=== PATIENT | male | born 1980 | race Caucasian/White ===

== ENCOUNTER 2019-07-05 08:43 | Inpatient (IN) | payer MEDICARE, MEDICAID ==
[~2019-07-05] VITALS: Ht 175.3 cm; Wt 83.9 kg
[~2019-07-05 08:43] MED LIST: ACETAMINOPHEN-1 EAC1 PO; AMITRIPTYLINE H25 M2 PO; BENTYL20 MG PO; CLARITIN10 MG PO; CYMBALTA60 MG PO; DAYPRO600 MG PO; DEPAKOTE 250MG250 M1 PO; FELDENE20 MG PO; IBUPROFEN 800800 M1; IMITREX100 MG PO; KEFLEX500 MG PO; LYRICA 50 MG50 MG PO; METAXALL800 MG PO; PAXIL10 MG PO; PREDNISONE 20 M20 M1 PO; TOPAMAX50 MG PO; TRAMADOL 50 MG50 MG PO; VALIUM5 MG PO
[2019-07-05 08:48] VITALS: BP 137/57
[2019-07-05] MEDS ORDERED: AMLODIPINE-OLM1 EAC1 PO (08:52)
[2019-07-05] MEDS ORDERED: MOBIC15 MG PO (08:52)
[2019-07-05] MEDS ORDERED: BACLOFEN 10MG T10 MG PO (08:53)
[2019-07-05] MEDS ORDERED: LIPITOR40 MG PO (08:53)
[2019-07-05] MEDS ORDERED: PLAVIX 75 MG TA75 MG PO (08:53)
[2019-07-05] MEDS ORDERED: FLEXERIL PO (08:53)
[2019-07-05] MEDS ORDERED: COREG12.5 MG PO (08:53)
[2019-07-05] MEDS ORDERED: PERCOCET PO (08:54)
[2019-07-05] MEDS ORDERED: MS CONTIN 30 MG30 M1 PO (08:54)
[2019-07-05 09:15] LABS: ABSOLUTE BASOPHILS 0.1 thou/uL (0.0-0.2); ABSOLUTE EOSINOPHILS 0.3 thou/uL (0.0-0.7); ABSOLUTE LYMPHOCYTES 2.3 thou/uL (0.8-5.3); ABSOLUTE MONOCYTES 0.6 thou/uL (0.0-1.2); ABSOLUTE NEUTROPHILS 7.2 thou/uL (1.6-8.1); EOSINOPHILS 2.7 %; HEMATOCRIT 38.1 % (42.0-52.0); HEMOGLOBIN 13.4 gm/dL (14.0-18.0); MCH 26.8 pg (26.0-34.0); MCHC 35.2 g/dL (28.0-37.0); MCV 76.1 fL (80.0-100.0); MONOCYTES 5.8 %; MPV 6.7 fl. (7.2-11.1); NUCLEATED RBCS 0 /100WBC; PLATELET COUNT* 378 thou/uL (150-400); POLYS 68.5 %; RBC 5.01 mil/uL (4.50-6.00); RDW-CV 15.9 % (10.5-14.5); WBC 10.6 thou/uL (4.0-11.0)
[2019-07-05 10:05] LABS: ANION GAP 14 mmol/L (7-16); BUN 18 mg/dL (7-18); CALCIUM 9.8 mg/dL (8.5-10.1); CHLORIDE 100 mmol/L (98-107); CO2 25 mmol/L (21-32); CREATININE 0.8 mg/dL (0.6-1.3); GLUCOSE 167 mg/dL (70-99); SODIUM 139 mmol/L (136-145)
[2019-07-05 10:20] LABS: ALBUMIN 3.8 g/dL (3.4-5.0); ALKALINE PHOSPHATASE 115 U/L (46-116); LIPASE 69 U/L (73-393); MAGNESIUM 3.7 mg/dL (1.8-2.4); NT-PRO BRAIN NAT PEPTIDE < 5 pg/mL (<300); SGOT 20 U/L (15-37); SGPT 46 U/L (30-65); TOTAL BILIRUBIN 0.1 mg/dL (<0.1-1.0); TOTAL PROTEIN 8.2 g/dL (6.4-8.2); TROPONIN-I LEVEL <0.06 ng/mL (<0.06)
[2019-07-05 12:12] LABS: CHOLESTEROL 243 mg/dL (<200); HDL CHOLESTEROL 26 mg/dL (>40); PHOSPHORUS* 3.3 mg/dL (2.5-4.9); SERUM ASSESSMENT Clear; TC:HDL 9.3 Ratio (Not establshd); TRIGLYCERIDE 529 mg/dL (<150); VLDL 106 mg/dL (<40)
[2019-07-05 12:22] VITALS: BP 124/63
--- NOTE | 2019-07-05 14:11 | EKG ---
[place] [address] ELECTROCARDIOGRAM REPORT Name: MELISSA PATE Room: [address] ADM IN M.R.#: [id number] Admission: 07/05/19 Attend Phys: Jasbir Harmon Discharge: Date of : 78 Report #: [id number] THIS REPORT FOR: //name// [facility] ED Test Date: 2019-07-05 Test Time: 08:50:50 Pat Name: MELISSA PATE Department: Room: [facility] Gender: M Machinist Job Setter: VALERIE : 1980 Requested By: Jose Miguel Wilburn Order Number: [id number] MD: Bon Mckeon Measurements Intervals [place] Rate: 92 P: 32 VT: 147 QRS: -17 QRSD: 105 T: 7 QT: 378 QTc: 468 Interpretive Statements Sinus rhythm Possible left atrial enlargement Abnormal R-wave progression, late transition Left ventricular hypertrophy Inferior infarct, old Anterior ST elevation, probably due to LVH Baseline wander in lead(s) V2 Compared to ECG 05/15/2017 21:27:37 Myocardial infarct finding now present ST (T wave) deviation now present Incomplete right bundle-branch block no longer present Electronically Signed On 07-05-2019 14:11:41 SUMMER ASSOCIATE by Bon Mckeon [email or web address] <ELECTRONICALLY SIGNED> By: Bon Mckeon MD, [facility] 07/05/19 1411 0850 0850 Bon Mckeon MD, FAC /EPI
[2019-07-05 16:04] VITALS: BP 108/55
[2019-07-05 20:19] VITALS: BP 114/64
[2019-07-06] VITALS: BP 134/53
[2019-07-06 04:00] VITALS: BP 130/63
[2019-07-06 04:26] LABS: HEMATOCRIT 36.7 % (42.0-52.0); HEMOGLOBIN 12.3 gm/dL (14.0-18.0); MCH 25.9 pg (26.0-34.0); MCHC 33.4 g/dL (28.0-37.0); MCV 77.7 fL (80.0-100.0); MPV 7.2 fl. (7.2-11.1); RBC 4.73 mil/uL (4.50-6.00); RDW-CV 15.8 % (10.5-14.5); WBC 15.5 thou/uL (4.0-11.0)
[2019-07-06 04:44] LABS: CALCIUM 10.2 mg/dL (8.5-10.1); CREATININE 1.1 mg/dL (0.6-1.3); MAGNESIUM 1.9 mg/dL (1.8-2.4); POTASSIUM 3.6 mmol/L (3.5-5.1)
--- NOTE | 2019-07-06 05:52 | NUR ---
PT IS ABLE TO COMMUNICATE HIS NEEDS TO STAFF EFFECTIVELY. CURRENT PAIN MEDICAITON REGIMEN HAS BEEN MARGINALLY ADEQUATE FOR CONTROLLING HIS BACK PAIN UP TO THIS TIME. HE HAS BEEN NPO, EXCEPT FOR SIPS WITH MEDS, SINCE MIDNIGHT FOR A POSSIBLE CARDIAC STRESS TEST LATER TODAY. BACLOFEN RESTARTED EARLYER IN THIS SHIFT.
--- NOTE | 2019-07-06 07:20 | NUR ---
CHANGE OF SHIFT, BEDSIDE REPORT GIVEN PATIENT SEEN AT BEDSIDE, SITTING UP IN BED WATCHING TV ASSUMED PATIENT
[2019-07-06 08:00] VITALS: BP 130/75
--- NOTE | 2019-07-06 09:28 | CON ---
[address] [address] CONSULTATION Name: MELISSA PATE Room: [address] IN .R.#: [id number] Admission: 07/05/19 Attend Phys: Jasbir Harmon Discharge: Date of : 78 Report #: [id number] THIS REPORT FOR: //name// CC: Sebastian Elmore DO [facility] RAD TROTTER MD INDICATION: Chest pain. HISTORY OF PRESENT ILLNESS: The patient is a 38-year-old gentleman with a history of coronary artery disease. He had percutaneous coronary intervention in the setting of non-ST elevation myocardial infarction in July of last year with placement of stents to the circ marginal, LAD and diagonal vessels. Several weeks later, he had an additional stent placed to the right posterolateral branch. Outside records are not available for review. The patient presented this morning with complaints of chest discomfort described as a sharp and pressure-like pain with intermittent episodes of very sharp fleeting discomfort radiating from the left sternal region to the left axilla. He reports a cough with this, occasional episodes of cold sweats. EKG showed sinus rhythm with evidence of left ventricular hypertrophy and possible old inferior myocardial infarction. No acute ST segment abnormalities were noted. Cardiac enzymes are unremarkable. He is without other cardiac complaint at this time. PAST MEDICAL HISTORY: 1. Coronary artery disease. 2. Hyperlipidemia. 3. Hypertension. 4. Recurrent migraines. PAST SURGICAL HISTORY: 1. Tonsillectomy and adenoidectomy as a child. 2. Appendectomy. 3. Previous thoracic back surgery. 4. Thoracotomy for left lung collapse. 5. Orchiectomy as a child, single. ALLERGIES: ALPRAZOLAM, CEFTAZIDIME, IODINE, COMPAZINE, TIZANIDINE. HOME MEDICATIONS: Paxil 100 mg b.i.d., meloxicam 15 mg daily, amlodipine/olmesartan/hydrochlorothiazide 10/20/12.5 one tablet daily, Flexeril 10 mg t.i.d., carvedilol 12.5 mg b.i.d., clopidogrel 75 mg daily, atorvastatin 40 mg daily, baclofen 20 mg t.i.d., MS Contin 30 mg 1/2 tablet b.i.d., Percocet 5/325 one tablet q. 4 hours p.r.n. SOCIAL HISTORY: The patient is a former cigarette smoker. He quit smoking. [place] [address] CONSULTATION Name: MELISSA PATE Room: [address]#: [id number] Admission: 07/05/19 Attend Phys: Jasbir Harmon Discharge: Date of : 78 Report #: [id number] PHYSICAL EXAMINATION: VITAL SIGNS: Stable. Blood pressure 124/63, heart rate 86 and regular. GENERAL: This is a pleasant gentleman who is in no distress. Mood and affect appropriate. HEENT: Extraocular muscles intact. Mucous membranes are moist. NECK: Shows no jugular venous distention. There are no carotid bruits. CHEST: Reveals clear lung orozco. I do not appreciate wheezes or rales. CARDIOVASCULAR: Reveals a regular rhythm with normal S1 and S2. I do not appreciate gallop or murmur. ABDOMEN: Reveals a protuberant abdomen, soft and nontender. Bowel sounds present. EXTREMITIES: Shows no edema. Peripheral pulses are 2+ and easily palpable. DIAGNOSTIC DATA: Chest x-ray is reviewed and shows evidence of previous fusion, mild cardiomegaly, but no acute infiltrate or effusion noted. LABORATORY DATA: Labs are reviewed. Electrolytes within normal limits. BUN 18, creatinine 0.8, serum glucose 167. Troponins are less than 0.06 on 2 separate occasions. NT-proBNP is less than 5. Fasting lipid profile shows total cholesterol 243, triglycerides 529, HDL 26, LDL unable to be calculated. White blood cell count 10.6, hemoglobin 13.4, platelet count 378,000. IMPRESSION AND RECOMMENDATIONS: 1. Chest pain, somewhat atypical for angina. He has ruled out for myocardial infarction thus far. We will proceed with noninvasive stress testing to further evaluate. 2. Coronary artery disease. The patient is on appropriate medications as outlined above. 3. Hyperlipidemia, triglycerides not well controlled. We will check hemoglobin A1c to see if the patient is diabetic. Would recommend adding a fibrate for triglyceride elevation. Further treatment will be pending response to those medications. 4. Hypertension, adequately controlled on current regimen. <ELECTRONICALLY SIGNED> By: Bon Mckeon MD, FACC 07/06/19 0928 1307 2300Bon Mckeon MD, FACC /nt
[2019-07-06 11:20] VITALS: BP 157/87
[2019-07-06] MEDS ORDERED: FENOFIBRATE160 MG PO (12:18)
[2019-07-06] MEDS ORDERED: MUCINEX600 MG PO (12:18)
[2019-07-06 13:11] VITALS: BP 157/87
--- NOTE | 2019-07-06 13:40 | NUR ---
PATIENT DISCHARGED TO HOME ALL DISCHARGE INSTUCTIONS GIVEN, ACKNOWLEDGED, SIGNED COPIES GIVEN IV AND HEART MONITOR REMOVED PERSOANL BELONGINGS RETURNED PATIENT DISCHARGED TO HOME
--- NOTE | 2019-07-06 16:59 | CARDNUC ---
[place] [address] CARDIAC NUCLEAR IMAGING REPORT Name: MELISSA PATE Room: [address]#: [id number] Admission: 07/05/19 Attend Phys: Jasbir navas Sa Discharge: 07/06/19 Date of : 78 Date of Service: 07/06/19 1659 Report #: [id number] THIS REPORT FOR: //name// APPROVED REPORT Study performed: 07/06/2019 09:47:49 Indication: Chest pain Patient Location: In-Patient Room #: [facility] Stress Tech: Rocio Plok Stress Nurse: Camille Del Rio RN Ht: 5 ft 9 in Wt: 185 lbs BSA: 2.00 m2 BMI: 27.31 Medical History Medical History: COPD, HTN, Hyperlipidemia, CAD s/p MA, Smoking Medications: amlodipine, losartan, carvedilol, asa-325, atorvastatin, clopidogrel Allergies: iodine, alprazolam, cmpazine, tizanidine, ceftiazide, shellfish Cardiac Risk Factors: Hyperlipidemia, HTN, Smoking, FHX of CAD Previous Cardiac Procedures: PCI Exercise History: Sedentary Physical Disabilities: Back Meds Held (24 hrs): carvedilol Resting Data Rest SPECT myocardial perfusion imaging was performed in supine position 45 minutes following the intravenous injection of 10.6 mCi of Tc-99m Sestamibi. Time of rest injection: 08:00 The images were gated to evaluate regional wall motion and calculate left ventricular ejection fraction. Administration Route: IV Administration Site: Left AC Pharmacologic Stress Pharmacologic stress test was performed by injecting Regadenoson 0.4 mg IV push over 10-15 seconds immediately followed by the intravenous injection of 35.6 mCi of Tc-99m Sestamibi. Time of stress injection: 09:45 [place] [address] CARDIAC NUCLEAR IMAGING REPORT Name: MELISSA PATE Room: [address]#: [id number] Admission: 07/05/19 Attend Phys: Jasbir navas Sa Discharge: 07/06/19 Date of : 78 Date of Service: 07/06/19 1659 Report #: [id number] Administration Route: IV Administration Site: Left AC Heart Rate at time of stress injection: 128 bpm. Gated Stress SPECT was performed 45 minutes after stress injection. The images were gated to evaluate regional wall motion and calculate left ventricular ejection fraction. Prone imaging was performed. Stress Test Details Stress Test: Pharmacologic stress testing performed using 0.4 mg of regadenoson per 5 mL given IV over 10 seconds. Reason for pharmacologic stress test: physical limitation. 60 mg caffeine given for tachycardia. HR Max Heart Rate (APMHR): 181 bpm Resting HR: 104 bpm Target HR (85% APMHR): 153 bpm Max HR Achieved: 128 bpm % of APMHR: 70 Recovery HR: 115 bpm BP Resting BP: 141/94 mmHg Max BP: 161/82 mmHg Recovery BP: 161/82 mmHg ECG Resting ECG: Sinus Rhythm Stress ECG: Sinus Tachycardia ST Change: None Arrhythmia: None Recovery ECG: Sinus Rhythm Recovery ST Change: None Recovery Arrhythmia: None Clinical Reason for Termination: Completed protocol Exercise duration: 0 min sec Exercise capacity: 1 METs The patient had no significant cardiac symptoms with Lexiscan infusion. Nurse Comments pt spo2 92%onra. o2 4l/nc applied. pt has rods in back and is unable towalk on treadmill Stress ECG Conclusion The baseline 12-lead EKG shows sinus rhythm without [place] [address] CARDIAC NUCLEAR IMAGING REPORT Name: MELISSA PATE Room: [address]#: [id number] Admission: 07/05/19 Attend Phys: Jasbir navas Sa Discharge: 07/06/19 Date of : 78 Date of Service: 07/06/19 1659 Report #: [id number] T wave abnormality. EKGs obtained during and post Lexiscan stress show sinus rhythm and sinus tachycardia with no significant ST or T wave changes when compared to baseline. There were no significant stress-induced arrhythmias. Study Quality Study: Good Artifact: No artifact Study Data At rest, the left ventricular ejection fraction was 74%.. Post stress, the left ventricular ejection was 71%.. TID = 1.12. Perfusion Perfusion images obtained at rest and post Lexiscan stress show a small in size moderate intensity defect of the basal inferior wall that appears fixed. No significant reversible defects were identified. Wall Motion There is mild hypokinesis of the basal portion of the inferoseptal wall. Remaining chowdary appear to move normally. Global LV systolic function is preserved. Nuclear Conclusion ECG Findings: negative for ischemia Clinical Findings: negative for ischemia Nuclear Findings: negative for ischemia Exercise Capacity: not assessed Left Ventricular Function: preserved Myocardial perfusion images suggest prior infarct of the basal inferior wall. There were no defects to suggest ischemia. Global LV systolic function is fairly well-preserved. This is not a high risk study. <Conclusion> The baseline 12-lead EKG shows sinus rhythm without significant ST or T wave abnormality. EKGs obtained during and post Lexiscan stress show sinus rhythm and sinus tachycardia with no significant ST or T wave changes when compared to baseline. There were no significant stress-induced arrhythmias. <ELECTRONICALLY SIGNED> By: Bon Mckeon MD, FACC 07/06/19 165 58 58 Bon Mckeon MD, FACC /INF
== END 2019-07-06 13:40 | disposition home or self-care (01) | DRG 303 ==
LOC: M.ERS 08:43 → M.2W 10:47 → M.TBA-ER 10:47 → M.2W 12:31
PROVIDERS: Emergency Medicine Emergency Medical Services; ADMIT Family Medicine
DX: I25.119 Atherosclerotic heart disease of native coronary artery with unspecified angina pectoris (principal); K59.00 Constipation, unspecified; G43.909 Migraine, unspecified, not intractable, without status migrainosus; E78.5 Hyperlipidemia, unspecified; F41.9 Anxiety disorder, unspecified; F32.9 Major depressive disorder, single episode, unspecified; J44.9 Chronic obstructive pulmonary disease, unspecified; G40.909 Epilepsy, unspecified, not intractable, without status epilepticus; M43.24 Fusion of spine, thoracic region; Z90.49 Acquired absence of other specified parts of digestive tract; Z95.5 Presence of coronary angioplasty implant and graft; Z88.8 Allergy status to other drugs, medicaments and biological substances; Z91.041 Radiographic dye allergy status; Z91.013 Allergy to seafood; Z87.891 Personal history of nicotine dependence; Z91.14 Patient's other noncompliance with medication regimen

== ENCOUNTER 2019-09-27 11:49 | Emergency (ER) | payer OTHER, MEDICAID ==
[~2019-09-27] VITALS: Ht 175.3 cm; Wt 89.4 kg
[~2019-09-27 11:49] MED LIST changes: +AMLODIPINE-OLM1 EAC1 PO; +BACLOFEN 10MG T10 MG PO; +COREG12.5 MG PO; +FENOFIBRATE160 MG PO; +FLEXERIL PO; +LIPITOR40 MG PO; +MOBIC15 MG PO; +MS CONTIN 30 MG30 M1 PO; +MUCINEX600 MG PO; +PERCOCET PO; +PLAVIX 75 MG TA75 MG PO
[2019-09-27] MEDS ORDERED: DOXYCYCLINE 10100 M2 PO (12:21)
[2019-09-27] MEDS ORDERED: NORCO 5-325 TA1 EAC1 PO (12:21)
[2019-09-27 12:25] VITALS: BP 140/100
== END 2019-09-27 12:29 | disposition home or self-care (01) ==
LOC: M.ERS 11:49
DX: S80.861A Insect bite (nonvenomous), right lower leg, initial encounter (principal); I10 Essential (primary) hypertension; I25.10 Atherosclerotic heart disease of native coronary artery without angina pectoris; E78.5 Hyperlipidemia, unspecified; G43.909 Migraine, unspecified, not intractable, without status migrainosus; Z90.49 Acquired absence of other specified parts of digestive tract; Z95.5 Presence of coronary angioplasty implant and graft; Z87.891 Personal history of nicotine dependence; Z91.013 Allergy to seafood; Z88.8 Allergy status to other drugs, medicaments and biological substances; W57.XXXA Bitten or stung by nonvenomous insect and other nonvenomous arthropods, initial encounter; Y93.89 Activity, other specified; Y92.89 Other specified places as the place of occurrence of the external cause; Y99.8 Other external cause status

== ENCOUNTER 2020-03-04 13:20 | Emergency (ER) | payer OTHER, MEDICAID ==
[~2020-03-04] VITALS: Ht 205.7 cm; Wt 78.8 kg
[~2020-03-04 13:20] MED LIST changes: +DOXYCYCLINE 10100 M2 PO; +NORCO 5-325 TA1 EAC1 PO
[2020-03-04 14:30] VITALS: BP 155/98
== END 2020-03-04 14:30 | disposition home or self-care (01) ==
LOC: M.ERS 13:20
DX: M25.551 Pain in right hip (principal); G43.909 Migraine, unspecified, not intractable, without status migrainosus; I25.10 Atherosclerotic heart disease of native coronary artery without angina pectoris; G89.29 Other chronic pain; E78.5 Hyperlipidemia, unspecified; I10 Essential (primary) hypertension; Z87.891 Personal history of nicotine dependence; Z91.041 Radiographic dye allergy status; Z88.8 Allergy status to other drugs, medicaments and biological substances; Z91.013 Allergy to seafood; Z88.1 Allergy status to other antibiotic agents; Z90.49 Acquired absence of other specified parts of digestive tract; Z95.5 Presence of coronary angioplasty implant and graft

== ENCOUNTER 2020-03-07 15:10 | Inpatient (IN) | payer OTHER, MEDICAID ==
[~2020-03-07] VITALS: Ht 175.3 cm; Wt 84.4 kg
[2020-03-07] VITALS (29 sets, daily range): BP systolic 104–188; BP diastolic 7–107
[2020-03-07 15:30] LABS: HEMOGLOBIN 15.1 gm/dL (14.0-18.0); MCH 26.4 pg (26.0-34.0); MCHC 34.2 g/dL (28.0-37.0); MCV 77.2 fL (80.0-100.0); MPV 7.4 fl. (7.2-11.1); NUCLEATED RBCS 0 /100WBC; PLATELET COUNT* 393 thou/uL (150-400); RBC 5.69 mil/uL (4.50-6.00); RDW-CV 15.7 % (10.5-14.5)
[2020-03-07 15:36] LABS: CALCIUM 9.4 mg/dL (8.5-10.1); CREATININE 0.7 mg/dL (0.6-1.3); POTASSIUM 3.5 mmol/L (3.5-5.1)
[2020-03-07 15:45] LABS: TOTAL BILIRUBIN 0.3 mg/dL (<0.1-1.0); TOTAL PROTEIN 8.3 g/dL (6.4-8.2)
--- NOTE | 2020-03-07 15:45 | NUR ---
50MG BENADRAYL, 125MG SOLUMEDROL, 1000ML NS, PULLED FOR NURSE FRASER, WITH SITE SAFETY COORDINATOR, UNDER THE VERBAL ORDERS OF DR DIAZ. COVID TEST SWABS ARE SENT WITH PATIENT BUT NOT PERFORMED
[2020-03-07 16:02] LABS: ABSOLUTE EOSINOPHILS 1.3 thou/uL (0.0-0.7); ABSOLUTE LYMPHOCYTES 2.4 thou/uL (0.8-5.3); ABSOLUTE MONOCYTES 0.4 thou/uL (0.0-1.2); ABSOLUTE NEUTROPHILS 7.9 thou/uL (1.6-8.1); ANISOCYTOSIS Occasional; PLATELET ESTIMATE ADEQUATE
--- NOTE | 2020-03-07 17:51 | NUR ---
PT ARRIVED TO ROOM ICU 4. RIGHT GROIN CATH SITE AND RADIAL SITE CHECKED WITH SALES TECHNICIAN HOME THEATER RN. PT INSTRUCTED ON BEDREST AND NOT MOVE RIGHT LEG. NSR. VSS. AT BS AND UPDATED ON CARE
--- NOTE | 2020-03-07 21:12 | NUR ---
PATIENT COMPLAINING OF NEW ONSET, SHARP PAIN IN RLQ OF ABDOMEN AND INTO GROIN. PAGED DR. CASTELLON AND OBTAINED ORDERS FOR STAT CT OF ABDOMEN AND PELVIS. CT RESULTS RETURNED. PAGED DR. CASTELLON FOR RESULTS. AWAITING CALLBACK. [facility]
[2020-03-07 21:39] LABS: HEMATOCRIT 37.5 % (42.0-52.0); MCH 25.8 pg (26.0-34.0); MCHC 33.3 g/dL (28.0-37.0); MCV 77.4 fL (80.0-100.0); MPV 7.3 fl. (7.2-11.1); RBC 4.84 mil/uL (4.50-6.00); RDW-CV 15.4 % (10.5-14.5); WBC 15.2 thou/uL (4.0-11.0)
[2020-03-07 21:41] LABS: HEMOGLOBIN 12.5 gm/dL (14.0-18.0)
[2020-03-07 22:18] LABS: APTT 26.2 Seconds (25.0-31.3); PROTIME 10.7 Seconds (9.20-11.50)
[2020-03-08] VITALS (44 sets, daily range): BP systolic 116–199; BP diastolic 55–101
[2020-03-08 01:44] LABS: HEMATOCRIT 36.3 % (42.0-52.0); HEMOGLOBIN 12.2 gm/dL (14.0-18.0); MCH 25.8 pg (26.0-34.0); MCHC 33.7 g/dL (28.0-37.0); MCV 76.7 fL (80.0-100.0); MPV 7.4 fl. (7.2-11.1); RBC 4.73 mil/uL (4.50-6.00); RDW-CV 15.3 % (10.5-14.5); WBC 18.9 thou/uL (4.0-11.0)
[2020-03-08 02:10] LABS: ANION GAP 13 mmol/L (7-16); BUN 14 mg/dL (7-18); CALCIUM 8.6 mg/dL (8.5-10.1); CHLORIDE 103 mmol/L (98-107); CO2 23 mmol/L (21-32); CREATININE 0.8 mg/dL (0.6-1.3); GLUCOSE 188 mg/dL (70-99); POTASSIUM 3.6 mmol/L (3.5-5.1); SODIUM 139 mmol/L (136-145); TROPONIN-I LEVEL 0.06 ng/mL (<0.06)
[2020-03-08 02:21] LABS: CHOLESTEROL 216 mg/dL (<200); HDL CHOLESTEROL 36 mg/dL (>40); LDL CHOLESTEROL 160 mg/dL (<100); TRIGLYCERIDE 101 mg/dL (<150); VLDL 20 mg/dL (<40)
[2020-03-08 02:23] LABS: SERUM ASSESSMENT Clear
[2020-03-08 05:20] LABS: HEMATOCRIT 35.3 % (42.0-52.0); HEMOGLOBIN 11.9 gm/dL (14.0-18.0); MCH 25.6 pg (26.0-34.0); MCHC 33.7 g/dL (28.0-37.0); MPV 7.1 fl. (7.2-11.1); RBC 4.64 mil/uL (4.50-6.00); RDW-CV 15.6 % (10.5-14.5); WBC 20.6 thou/uL (4.0-11.0)
--- NOTE | 2020-03-08 07:29 | NUR ---
ASSESSMENTS CHARTED. PATIENT'S PAIN BETTER CONTROLLED THROUGHOUT THE NIGHT. ORDERED TO STAY ON BEDREST PER DR. CASTELLON UNTIL THE AM. SPOKE WITH VASCULAR SURGERY, NO SURGICAL OPTION TO BE PURSUED AT THIS TIME. VSS. NO OTHER SIGNIFICANT EVENTS THIS SHIFT NOT PREVIOUSLY NOTED.
--- NOTE | 2020-03-08 09:21 | EKG ---
[place] [address] ELECTROCARDIOGRAM REPORT Name: MELISSA PATE Room: [address] ADM IN .R.#: [id number] Admission: 03/07/20 Attend Phys: Tio Gallegos MD Discharge: Date of : 78 Date of Service: 03/07/20 1516 Report #: [id number] THIS REPORT FOR: //name// [facility] ED Test Date: 2020-03-07 Test Time: 15:16:30 Pat Name: MELISSA PATE Department: Room: [facility] Gender: M Collection Team Lead: KYLER : 1980 Requested By: Telma Slater Order Number: [id number] MD: Lang Kim Measurements Intervals [place] Rate: 100 P: 17 [place]: 152 QRS: -51 QRSD: 106 T: 42 QT: 376 QTc: 485 Interpretive Statements Sinus tachycardia Left atrial enlargement Abnormal R-wave progression, late transition Left ventricular hypertrophy Inferior infarct, old ST elevation, consider anterior injury Compared to ECG 07/05/2019 08:50:50 Sinus rhythm no longer present Myocardial infarct finding still present ST (T wave) deviation still present Electronically Signed On 03-08-2020 9:21:13 CDT by Lang Kim [email or web address] <ELECTRONICALLY SIGNED> By: Aryan Kim MD, [facility] 03/08/20 0921 1516 1516 Aryan Kim MD, [facility] /EPI
[2020-03-08 11:37] LABS: HEMATOCRIT 36.2 % (42.0-52.0); HEMOGLOBIN 12.1 gm/dL (14.0-18.0); MCH 25.8 pg (26.0-34.0); MCHC 33.4 g/dL (28.0-37.0); MCV 77.4 fL (80.0-100.0); MPV 7.6 fl. (7.2-11.1); RBC 4.68 mil/uL (4.50-6.00); RDW-CV 15.5 % (10.5-14.5); WBC 26.3 thou/uL (4.0-11.0)
[2020-03-08 14:07] LABS: ABSOLUTE BASOPHILS 0.1 thou/uL (0.0-0.2); ABSOLUTE LYMPHOCYTES 1.8 thou/uL (0.8-5.3); ABSOLUTE MONOCYTES 1.1 thou/uL (0.0-1.2); ABSOLUTE NEUTROPHILS 22.4 thou/uL (1.6-8.1); BASOPHILS 0.4 %; HEMATOCRIT 35.9 % (42.0-52.0); HEMOGLOBIN 12.1 gm/dL (14.0-18.0); LYMPHOCYTES 7.1 %; MCH 25.9 pg (26.0-34.0); MCHC 33.7 g/dL (28.0-37.0); MCV 76.8 fL (80.0-100.0); MONOCYTES 4.5 %; MPV 7.4 fl. (7.2-11.1); NUCLEATED RBCS 0 /100WBC; PLATELET COUNT* 344 thou/uL (150-400); RBC 4.67 mil/uL (4.50-6.00); RDW-CV 15.4 % (10.5-14.5); WBC 25.5 thou/uL (4.0-11.0)
[2020-03-08 18:06] LABS: ABSOLUTE LYMPHOCYTES 2.2 thou/uL (0.8-5.3); ABSOLUTE MONOCYTES 0.7 thou/uL (0.0-1.2); ABSOLUTE NEUTROPHILS 18.4 thou/uL (1.6-8.1); BASOPHILS 0.1 %; HEMATOCRIT 34.2 % (42.0-52.0); HEMOGLOBIN 11.6 gm/dL (14.0-18.0); LYMPHOCYTES 10.2 %; MCH 26.3 pg (26.0-34.0); MCHC 34.1 g/dL (28.0-37.0); MCV 77.1 fL (80.0-100.0); MONOCYTES 3.4 %; MPV 7.7 fl. (7.2-11.1); NUCLEATED RBCS 0 /100WBC; PLATELET COUNT* 336 thou/uL (150-400); POLYS 86.3 %; RBC 4.43 mil/uL (4.50-6.00); RDW-CV 15.8 % (10.5-14.5); WBC 21.3 thou/uL (4.0-11.0)
--- NOTE | 2020-03-08 18:19 | NUR ---
PT WENT FOR CT/ MRI OF THE HEAD DO TO C/O DIZZINESS LOSS OF HEARING IN LEFT EAR RESULTS SHOWED ANTERIOR INFERIOR ISCHEMIC FARCT 3-4 WEEKS AGO [facility] 5 PT HAD TWO VOMITING EPISODES NOT RELIEVED BY ZOFRAN SCOPOLAMINE PATCH ORDER PT STATED IT HELPED. PT C/O SEVERE PAIN ALL DAY MOROPHINE AND HYDROCODONE GIVEN CBC COMPLETED EVERY [address] CASTELLON TO MONITOR HGB AND WBC. F/U CT OF ABD/PELVIS COMPLETED NO CHANGE FROM PRIOR CT RESULTS EXPLAINED TO FAMILY HEMATOMA RL ABD IS BEING MONITORED. PT AND HAVE MANY QUESTIONS RESTING IN BED
[2020-03-08 18:41] LABS: AMP/METHAMP Negative (Negative); BARBITURATES POSITIVE (Negative); BENZODIAZEPINES Negative (Negative); COCAINE Negative (Negative); METHADONE Negative (Negative); OPIATES POSITIVE (Negative); PCP Negative (Negative); THC Negative (Negative)
[2020-03-08 22:12] LABS: HEMATOCRIT 32.8 % (42.0-52.0); HEMOGLOBIN 11.2 gm/dL (14.0-18.0); MCH 26.2 pg (26.0-34.0); MCV 77.1 fL (80.0-100.0); MPV 7.4 fl. (7.2-11.1); RBC 4.26 mil/uL (4.50-6.00); RDW-CV 15.6 % (10.5-14.5); WBC 17.8 thou/uL (4.0-11.0)
[2020-03-09 03:34] LABS: HEMATOCRIT 33.8 % (42.0-52.0); HEMOGLOBIN 11.4 gm/dL (14.0-18.0); MCH 25.9 pg (26.0-34.0); MCHC 33.7 g/dL (28.0-37.0); MCV 76.8 fL (80.0-100.0); MPV 7.4 fl. (7.2-11.1); RBC 4.4 mil/uL (4.50-6.00); RDW-CV 16.1 % (10.5-14.5); WBC 16.6 thou/uL (4.0-11.0)
[2020-03-09 03:57] LABS: CALCIUM 9.1 mg/dL (8.5-10.1); CREATININE 0.7 mg/dL (0.6-1.3); MAGNESIUM 2.1 mg/dL (1.8-2.4); POTASSIUM 3.8 mmol/L (3.5-5.1)
[2020-03-09 07:00] VITALS: BP 143/81
[2020-03-09 08:01] VITALS: BP 136/83
--- NOTE | 2020-03-09 08:20 | NUR ---
ASSESSMENTS CHARTED. PATIENT HAD UNEVENTFUL NIGHT. PAIN CONTROLLED WITH MORPHINE DOSES. SWALLOWS ORAL MEDS WITHOUT DIFFICULTY. NO FURTHER COMPLAINTS RELATING TO ABDOMEN AND HEMATOMA FORMATION FROM PREVIOUS NIGHT. VSS
--- NOTE | 2020-03-09 09:40 | NUR ---
ROSAMARIA DUMONT'Jia, PT TOLERATED WELL. PT DID VOID 25 MLS AFTER, IT WAS BLOOD TINGED, NO CLOTS. PT UP TO SINK TO SHAVE INDEPENDENTLY. DIET ORDERED, PT WANTS TO TAKE PILLS AFTER FINISHING BREAKFAST. PT IS NOW TELE STATUS, AWAITING BED. WANTS TO SHOWER, ATTEMPTED TO CALL UP TO TELE AND SEE IF THERE WAS SOMEONE WHO COULD TAKE PT UP TO SHOWER ROOM.
[2020-03-09 11:40] LABS: HEMATOCRIT 32.8 % (42.0-52.0); HEMOGLOBIN 11.3 gm/dL (14.0-18.0); MCH 26.4 pg (26.0-34.0); MCHC 34.3 g/dL (28.0-37.0); MCV 76.9 fL (80.0-100.0); MPV 7.4 fl. (7.2-11.1); RBC 4.26 mil/uL (4.50-6.00); WBC 16.4 thou/uL (4.0-11.0)
[2020-03-09 12:08] VITALS: BP 123/72
--- NOTE | 2020-03-09 13:28 | NUR ---
PT HAS BEEN ON TWO WALKS THIS SHIFT. FIRST WALK PT STATED HE WAS HAVING SOME STIFFNESS AND ACHING. PRN HYDROCODONE WAS GIVEN AFTER, THEN AFTER SECOND WALK PT STATED HE WAS FEELING MUCH BETTER
--- NOTE | 2020-03-09 16:55 | NUR ---
PT TO GO TO ROOM 211, REPORT GIVEN TO ATIF QUEZADA
[2020-03-09 17:28] VITALS: BP 135/84
--- NOTE | 2020-03-09 18:41 | NUR ---
PATIENT TRANSFERRED FROM ICU. PATIENT ARRIVED ON UNIT AT 1711. ASSESSMENT AND CHARTING REVIEWED. THIS RN AGREES WITH RON RN'S ASSESSMENT AND CHARTING. HOURLY ROUNDING PERFORMED. PATIENT HOOKED TO MONITOR. PATIENT RIGHT GROIN SITE INTACT, NO BLEEDING. RIGHT RADIAL FAILED SITE, NO BLEEDING. CALL LIGHT WITH IN REACH.
[2020-03-09 20:00] VITALS: BP 131/87
--- NOTE | 2020-03-09 20:00 | NUR ---
RECEIVED REPORT AND ASSUMED CARE OF PT, ASSESSMENT COMPLETED. PT ANXIOUS AND WANTING TO WALK INTO HALLWAY, WHEN TOLD HE HAD TO WEAR A MASK HE BECAME UPSET, REMAINS IN ROOM. RT GROIN DRSG DRY AND INTACT. TELEMETRY ON SHOWING SR. WILL CONT TO MONITOR AND ASSIST NEEDED.
[2020-03-09 23:52] VITALS: BP 116/62
[2020-03-10] VITALS (7 sets, daily range): BP systolic 116–140; BP diastolic 62–76
[2020-03-10 02:06] LABS: GLYCOHEMOGLOBIN (HGB A1C) 5.9 % (4.8-5.6)
[2020-03-10 04:52] LABS: HEMATOCRIT 31.9 % (42.0-52.0); MCH 26.5 pg (26.0-34.0); MCHC 34.5 g/dL (28.0-37.0); MCV 76.7 fL (80.0-100.0); MPV 7.4 fl. (7.2-11.1); RBC 4.16 mil/uL (4.50-6.00); RDW-CV 15.7 % (10.5-14.5); WBC 11.3 thou/uL (4.0-11.0)
--- NOTE | 2020-03-10 06:12 | NUR ---
SLEPT WELL TONIGHT. DENIES CP OR SOB. NO CHANGE IN ASSESSMENT. TELEMETRY CONT TO SHOW SR. HS GOALS OF REST AND SAFETY ACHIEVED. HOURLY ROUNDING OBSERVED.
[2020-03-10] MEDS ORDERED: ASPIR 8181 M1 PO (10:59)
[2020-03-10] MEDS ORDERED: LIPITOR40 MG PO (11:00)
[2020-03-10] MEDS ORDERED: LOPRESSOR50 MG PO (11:01)
[2020-03-10] MEDS ORDERED: PROTONIX 20 MG20 M1 PO (11:03)
[2020-03-10] MEDS ORDERED: EFFIENT10 MG PO (11:04)
--- NOTE | 2020-03-10 11:13 | EKG ---
[place] [address] ELECTROCARDIOGRAM REPORT Name: HERLINDAMELISSA Moreno Room: [address] IN .R.#: [id number] Admission: 03/07/20 Attend Phys: Paul Trejo, Discharge: Date of : 78 Date of Service: 03/08/20 1552 Report #: [id number] THIS REPORT FOR: //name// [facility] Test Date: 2020-03-08 Test Time: 15:52:00 Pat Name: MELISSA PATE Department: Room: [facility] Gender: M Dough Scaler And Mixer: Murali Iglesias : 1980 Requested By: Aryan Kim Order Number: [id number] MD: Tio Gallegos Measurements Intervals [place] Rate: 72 P: -14 [place]: 149 QRS: -19 QRSD: 114 T: 114 QT: 431 QTc: 472 Interpretive Statements Sinus rhythm Probable left atrial enlargement Left ventricular hypertrophy Inferior infarct, old Anterior infarct, (LAD) Compared to ECG 03/07/2020 15:16:30 Sinus tachycardia no longer present Myocardial infarct finding still present Electronically Signed On 03-10-2020 11:13:27 CDT by Tio Gallegos [email or web address] <ELECTRONICALLY SIGNED> By: Tio Gallegos MD, FACC 03/10/20 1113 1552 1552 Tio Gallegos MD, [facility] /EPI
--- NOTE | 2020-03-10 11:39 | NUR ---
Per nurse, Pt is having a zoom call with the courts in regards to his kids, CM to f/u later
--- NOTE | 2020-03-10 12:00 | NUR ---
Cardiac Rehab Stroke Education. Educated receptive patient and spouse on signs and symptoms of stroke, when to call 911, personal risk factor reduction, and smoking cessation. States understanding and questions answered to patient and spouse's satisfaction.
[2020-03-10] MEDS ORDERED: COREG25 MG PO ×2 (12:19→13:25)
[2020-03-10] MEDS ORDERED: NITROSTAT0.4 M1 SUBLING (12:24)
--- NOTE | 2020-03-10 12:32 | 2DMMODE ---
[place] [address] 2 D/M-MODE ECHOCARDIOGRAM Name: MELISSA PATE Josh Room: [address] IN [facility]#: [id number] Admission: 03/07/20 Attend Phys: Paul Trejo, Discharge: Date of : 78 Date of Service: 03/10/20 1231 Report #: [id number] THIS REPORT FOR: cc: Missael Velásquez,Missael Pandya,Bon Pickens MD [facility] ~ APPROVED REPORT Study performed: 03/10/2020 11:37:41 EXAM: Comprehensive 2D, Doppler, and color-flow Echocardiogram Patient Location: In-Patient Room #: [facility] Status: routine BSA: 1.98 HR: 67 bpm BP: 140/76 mmHg Rhythm: NSR Other Information Study Quality: Good Indications CVA/TIA Echo Enhancing Agent Indication: Rule out Shunt Agent(s) / Amount(s) Used: Agitated Saline 10 cc 2D Dimensions IVSd: 17.54 (7-11mm) LVOT Diam: 22.79 (18-24mm) LVDd: 54.02 mm PWd: 8.73 (7-11mm) Ascending Ao: 33.19 (22-36mm) LVDs: 33.96 (25-40mm) Aortic Root: 36.36 mm Volumes Left Atrial Volume (Systole) LA ESV Index: 43.50 mL/m2 Aortic Valve AoV Peak Dylan.: 1.82 m/s AO Peak Gr.: 13.27 mmHg LVOT Max P.94 mmHg AO Mean Gr.: 6.82 mmHg LVOT Mean P.93 [place] [address] 2 D/M-MODE ECHOCARDIOGRAM Name: MELISSA PATE Room: [address] IN [facility]#: [id number] Admission: 03/07/20 Attend Phys: Paul Trejo, Discharge: Date of : 78 Date of Service: 03/10/20 1231 Report #: [id number] LVOT Max V: 1.32 m/s AO V2 VTI: 31.60 cm LVOT Mean V: 0.76 m/s KALLIE (VTI): 3.19 cm2 LVOT V1 VTI: 24.69 cm Mitral Valve E/A Ratio: 1.60 MV Decel. Time: 219.63 ms MV E Max Dylan.: 0.79 m/s MV PHT: 63.69 ms MVA (PHT): 3.45 cm2 TDI E/Lateral E': 9.88 E/Medial E': 9.88 Medial E' Dylan.: 0.08 m/s Lateral E' Dylan.: 0.08 m/s Pulmonary Valve PV Peak Dylan.: 1.03 m/s PV Peak Gr.: 4.22 mmHg Left Ventricle The left ventricle is normal size. There is normal LV segmental wall motion. Moderate concentric left ventricular hypertrophy. Left ventricular systolic function is normal. LVEF is 60-65%. Transmitral Doppler flow pattern suggests impaired LV relaxation. Right Ventricle The right ventricle is normal size. The right ventricular systolic function is normal. Atria Left atrium is moderately dilated. Interatrial septum is intact without evidence of ASD or PFO. Right atrium is mildly dilated. Aortic Valve The aortic valve is normal in structure. No aortic regurgitation is present. There is no aortic valvular stenosis. Mitral Valve The mitral valve is normal in structure. Mild mitral regurgitation. No evidence of mitral valve stenosis. Tricuspid Valve The tricuspid valve is normal in structure. [place] [address] 2 D/M-MODE ECHOCARDIOGRAM Name: MELISSA PATE Room: [address]#: [id number] Admission: 03/07/20 Attend Phys: Paul Trejo, Discharge: Date of : 78 Date of Service: 03/10/20 1231 Report #: [id number] Pulmonic Valve The pulmonary valve is normal in structure. There is no pulmonic valvular regurgitation. Great Vessels The aortic root is normal in size. IVC is normal in size and collapses >50% with inspiration. Pericardium There is no pericardial effusion. <Conclusion> The left ventricle is normal size. Moderate concentric left ventricular hypertrophy. Left ventricular systolic function is normal. LVEF is 60-65%. Transmitral Doppler flow pattern suggests impaired LV relaxation. Left atrium is moderately dilated. Right atrium is mildly dilated. Mild mitral regurgitation. Trace tricuspid regurgitation. IVC is normal in size and collapses >50% with inspiration. Interatrial septum is intact without evidence of ASD or PFO. <ELECTRONICALLY SIGNED> By: Bon Mckeon MD, FACC 03/10/20 1231 1231 1231 Bon Mckeon MD, FACC /INF
[2020-03-10] MEDS ORDERED: METOPROLOL TART25 MG PO (13:19)
--- NOTE | 2020-03-10 15:04 | NUR ---
PT IN THE PROCESS OF BEING DC'ED. RN WITH PATIENT. INDICATES THAT HE HAS NO PHYSICAL NEED FOR PHYSICAL THERAPY. YOSVANY GIVENS,MPT
--- NOTE | 2020-03-10 16:19 | CARD ---
[address] [address] CARDIAC CATH REPORT Name: MELISSA PATE Room: [address]#: [id number] Admission: 03/07/20 Attend Phys: Paul Trejo MD Discharge: 03/10/20 Date of : 78 Report #: [id number] THIS REPORT FOR: //name// cc: Missael Velásquez Vincent R. DO ~ APPROVED REPORT Study performed: 03/07/2020 15:32:55 Patient Details Patient Status: ED Room #: The patient is a 39 year-old male Event Personnel Tio Gallegos Telemarketing Agent, Lorena García RN RN, Jakub Sy BUSINESS ANALYST INTERNAR [place]oub, Lyric Betancourt RTR Monitor Procedures Performed Art Access - R radial artery Art Access - R femoral artery Left Heart Cath w/or w/o Coronaries ANNIE Place w/wo Plasty Single RCA Hemostasis w/ Mynx Hemostasis with Hemoband Indication Abnormal ECG, Chest pain Risk Factors Arterial Hypertension, Tobacco History () Previous Procedures/Diagnoses Previous PCI Admission/Lab Medications/Medications given during procedure Glycoprotein IllbIlla Inhibitors, Heparin Unfract., Lidocaine Subcut 10 ml, Fentanyl IV 50 mcg, Midazolam (Versed) IV 2 mg, Nitroglycerin IA 200 mcg, Verapamil IA 2.5 mg, Lidocaine Subcut 14 ml, Midazolam (Versed) IV 1 mg, Heparin IV 7000 units, Aggrastat IV 7.9 ml, Heparin IV 1000 units, Effient PO 60 mg Procedure Narrative The patient was brought emergently to the Cardiac Catheterization Laboratory and was prepped and draped in a sterile manner. The right femoral was infiltrated with 2% Lidocaine subcutaneous anesthesia. A Florence 6 FR sheath was inserted into the right femoral artery. Coronary angiography was performed [place] [address] CARDIAC CATH REPORT Name: MELISSA PATE Room: [address]#: [id number] Admission: 03/07/20 Attend Phys: Paul Trejo MD Discharge: 03/10/20 Date of : 78 Report #: [id number] catheters. The right coronary system was accessed and visualized with a Diagnostic 6 Fr JR 4 catheter. The left coronary system was accessed and visualized with a Diagnostic 6 Fr JL 4 catheter. The left ventricle was accessed and visualized with a Diagnostic 6 Fr Pigtail catheter. Left ventricular/Aortic Valve gradient assessed via catheter pullback. Left ventriculogram was performed in OJEDA projection. Closure device was deployed with a 6 Fr MynxGrip 6/7F. The patient tolerated the procedure well and there were no complications associated with the procedure. A hematoma occurred. The right radial artery was accessed with a slender glidesheath. However, unable to enter the ascending aorta because of tortuous subclavian artery. It was decided to proceed from the femoral approach. Hemostasis was achieved with a hemoband. Intraoperative Conscious Sedation Sedation start time: 15:59 Case end Time: 16:50 Fentanyl 50 mcg Versed 3 mg Fluoro Time: 8.1 minutes Dose: DAP 43148 cGycm2 1227 mGy Contrast Type and Amount: Visipaque 200 ml Coronary Angiography The patient's coronary anatomy is right dominant. Diagnostic Cath Left Main 0% stenosis LAD A stent was noted to start in the proximal lad and extended beyond the takeoff of the second diagonal artery. The stent was noted to have a 40% mid stenosis. Diagonal 1 small vessel with a 90% ostial stenosis Diagonal 2 arose within the lad stent and had an ostial stent noted with 0% stenosis Circumflex 80% stenosis after the takeoff of a large marginal branch Right Coronary 40% proximal stenosis and a mid 80% stenosis before the acute margin of the artery. Distal stent had 0% stenosis Left Ventriculography The left ventricular ejection fraction is estimated to be 55-60%. Left ventricular wall motion abnormalities are present. There is no mitral insufficiency. mild apical hypokinesis noted Hemodynamics The aortic pressure is 172/73 mmHg with a mean of 115 [place] [address] CARDIAC CATH REPORT Name: MELISSA PATE Room: [address] IN [facility]#: [id number] Admission: 03/07/20 Attend Phys: Paul Trejo MD Discharge: 03/10/20 Date of : 78 Report #: [id number] ventricular pressure is 140/18 mmHg with a mean of mmHg. The left ventricular end diastolic pressure is 20 mmHg. There was no gradient across the aortic valve upon pullback. Pullback from the left ventricle to the aorta revealed no gradient across the aortic valve. PCI Technique Lesion Anticoagulation was achieved with Heparin. bolus of iv aggrastat given Percutaneous coronary intervention was performed on the mid right coronary artery. The lesion stenosis prior to intervention was 80% with MALINI 3 flow. A 6 Fr JR 4 Launcher Guide Catheter was used to engage the right ostium. A BMW 180 Interventional Guidewire was used to cross the lesion. BALLOON DILATION A Balloon catheter Trek RX 2.5 X 8 was inserted and inflated up to 9.00atm for 8seconds. Repeat angiography revealed the following post-dilatation results: 30% stenosis. Additional Inflation: 18.00atm for 9seconds. STENT DEPLOYMENT A drug-eluting stent Nixa RX Stent 3.5X18mm was inserted and inflated up to 16.00atm for 21seconds. Repeat angiography revealed the following post-stent deployment results: 0% stenosis. Additional Inflation: 17.00atm for 12seconds. Additional Inflation: 22.00atm for 11seconds. Final angiography reveals 0 % stenosis with MALINI 3 flow. Conclusion 1. no restenosis noted of stents in the proximal lad, first diagonal branch, and the distal rca 2. LVEF 55-60% 3. successful placement of a drug eluting stent in the mid rca Recommendations Cardiac Rehabilitation Referral Aggressive Medical Therapy Medications Administered Prasugrel <ELECTRONICALLY SIGNED> By: Tio Gallegos MD, FACC 03/10/20 161 18 18Tio Gallegos MD, FACC /INF
--- NOTE | 2020-03-10 20:13 | NUR ---
VS CHARTED, A&OX4, ROOM AIR, UP AD TANNER- PATIENT WALKS IN ROOM WITH A CANE, ON TELE, 1 DAY POST CATH, GROIN AND WRIST SITES CLEAN, DRY, INTACT WITH NO HEMATOMA, HOURLY ROUNDING PERFORMED, POSSESSIONS AND CALL LIGHT WITHIN REACH. REC DISCHARGE ORDERS, REVIEWED WITH PATIENT, CARDIOLOGY NURSE EDUCATION COMPLETED, EVENT MONITOR REQUESTED BY NEURO AND PLACED BY CARDIOLOGY STAFF. TELE MONITOR AND IV REMOVED WITHOUT COMPLICATION, PATIENT TAKEN IN WC TO FRONT DOOR AND PICKED UP BY SPOUSE IN FAMILY CAR
--- NOTE | 2020-03-13 17:23 | D ---
[address] [address] DISCHARGE SUMMARY Name: MELISSA PATE Room: [address] IN M.R.#: [id number] Admission: 03/07/20 Attend Phys: Paul Trejo MD Discharge: 03/10/20 Date of : 78 Report #: [id number] THIS REPORT FOR: //name// cc: Missael Velásquez Vincent R. DO THIS REPORT FOR: //name// CC: Tio Velásquez DO DATE OF SERVICE: 03/10/2020 DISCHARGE DIAGNOSES: 1. Coronary artery disease. 2. Unstable angina. 3. Hyperlipidemia. 4. Hypertension. 5. Tobacco abuse. 6. Chronic back pain. 7. History of testicular cancer. PROCEDURES: Left heart catheterization with placement of a single drug-eluting stent in the right coronary artery via the femoral approach. HISTORY OF PRESENT ILLNESS: The patient is a 39-year-old white male who came to the Emergency Room complaining of chest pain. The patient has an extensive past medical history. He apparently presented in 07/2018 with chest pain. He apparently had 3 coronary artery stents placed at [facility] [place]. He had another stent placed a month later in 08/[address] [facility] in [facility]. Since that time, he has been followed by my partner, Dr. Mckeon. He has been doing well since that time. He apparently had a stress test 11 months after his stent in 06/2019 here at [place] that showed a small inferior defect that was fixed. Ejection fraction is 71%. It was recommended he be treated medically. He was last seen by Dr. Mckeon in November of this year when he apparently was taking Lipitor, carvedilol, Plavix, fenofibrate. However, the patient states that since he was doing well, he stopped taking all of his medications and he was not even taking an aspirin a day for the past several months. On the day of admission, he was out mowing his yard when he felt a pressure in his chest, became diaphoretic and short of breath. The pain persisted, so he came to the Emergency Room with his . He was given nitroglycerin and the pain improved. I recommended [place] [address] DISCHARGE SUMMARY Name: KIPJasonMELISSA Moreno Room: [address]#: [id number] Admission: 03/07/20 Attend Phys: Paul Trejo MD Discharge: 03/10/20 Date of : 78 Report #: [id number] PAST MEDICAL HISTORY: Significant for two back surgeries. He has had a chest tube placement in the past for pneumothorax. He has had rib surgery following an accident, cholecystectomy, appendectomy. He is currently on no medications including aspirin. He does have a history of sleep apnea. He has a history of high blood pressure, hyperlipidemia. Unfortunately, he continues to smoke. He is not working at this time. PHYSICAL EXAMINATION: GENERAL: Revealed a middle-aged male, appeared in mild distress. VITAL SIGNS: Blood pressure 110/60, pulse is 90. CHEST: Clear to auscultation. CARDIAC: Regular rate and rhythm. EXTREMITIES: Had no edema. DIAGNOSTIC STUDIES: ECG; sinus tachycardia, left ventricular hypertrophy. He had nonspecific ST and T-wave changes. He had no chest x-ray on admission. LABORATORY WORK: Sodium 140, potassium 3.8, creatinine 0.7. Fasting blood sugar 100. His liver function studies were normal. Troponin 0.06. Cholesterol 216, triglyceride 101, HDL 36, LDL 160. His white blood cell count 12.0, hemoglobin 15.1. HOSPITAL COURSE: The patient was taken urgently to the cardiac catheterization lab due to persistent chest pain, history of coronary artery disease and ECG changes. I performed attempts at catheterization from the right radial artery. However, due to tortuosity of the innominate artery, I could not complete the procedure. Therefore, it was performed from the right femoral artery. Results showed normal left ventricular function with ejection fraction of 60%. The patient had a stent in the proximal LAD that covered the takeoff of the first diagonal branch, this stent had a 40% restenosis. The diagonal branch that olu within the stent also had a stent in its ostium that had no restenosis. The circumflex artery had a mid 80% stenosis. The right coronary artery had a stent distally that had no restenosis. However, there was a new 80% narrowing in the mid right coronary artery. He was then given heparin and Aggrastat and I placed a new drug-eluting stent in the mid right coronary artery. A Mynx was placed following the procedure. He was loaded with Effient. The patient had no further chest pain, shortness of breath or arrhythmias. He did develop a hematoma in the right groin and a drop in hemoglobin. CT scan showed evidence of a retroperitoneal bleed. Fortunately, he had no further bleeding. Prior to discharge, the family had no further complaints. Followup lab work at the time of discharge included potassium 3.8, BUN 17, creatinine 0.7, fasting glucose 100. He had no rise in troponin following stenting. His hemoglobin A1c was 5.9. His followup hemoglobin dropped to 11 with hematocrit 31.9. His followup ECG again showed a sinus rhythm, left ventricular hypertrophy, repolarization changes. He was discharged on his previous medications that he quit taking that included aspirin 81 mg a day, Lipitor 40 mg a day, carvedilol 25 [place] [address] DISCHARGE SUMMARY Name: MELISSA PATE Room: [address]#: [id number] Admission: 03/07/20 Attend Phys: Paul Trejo MD Discharge: 03/10/20 Date of : 78 Report #: [id number] He was started on Effient 10 mg a day and he was given nitroglycerin to take as needed for chest pain. I recommended he attempt to stop smoking and he has taken Chantix in the past. I felt it was okay that he continue Paxil 10 mg a day as well. He was discharged to return to care of Dr. Missael Velásquez for routine medical care. He will continue to see my partner, Dr. Mckeon in [facility]iology [facility] in 1 month for followup. He was to contact my office if he had recurrent chest pain or shortness of breath. He is not to do any heavy lifting for the next week. He is felt to have a good prognosis from a cardiac standpoint. <ELECTRONICALLY SIGNED> By: Tio Gallegos MD, [facility] 03/13/20 1723 0914 [id number] Gallegos MD, [facility] /nt
--- NOTE | 2020-03-13 17:23 | H ---
[place] [address] HISTORY AND PHYSICAL Name: MELISSA PATE Room: [address] IN M.R.#: [id number] Admission: 03/07/20 Attend Phys: Paul Trejo MD Discharge: 03/10/20 Date of : 78 Report #: [id number] THIS REPORT FOR: //name// cc: Missael Velásquez Vincent R. DO THIS REPORT FOR: //name// CC: Tio Velásquez DO DATE OF SERVICE: 03/07/2020 CARDIOLOGY HISTORY AND PHYSICAL HISTORY OF PRESENT ILLNESS: The patient is a 39-year-old white male who I was asked to see in the Emergency Room today after he complained of chest pain. The patient states he initially presented back in 07/2018 with chest pain. He apparently had 3 coronary artery stents placed here at [facility]. He had a fourth stent placed in 08/2018. He has done well since that time. He has been followed by my partner, Dr. Mckeon. He apparently had a stress test 6 months ago. He was doing well today, when he was out mowing the yard when he felt a pressure in his chest, he became diaphoretic, denied shortness of breath or nausea. The pain persisted. He was brought to the Emergency Room by his . He was given nitroglycerin. This seemed to help. However, he continued to have the chest pressure. He denies any recent exertional dyspnea, palpitations or syncope. He is not very active because of chronic back pain. PAST MEDICAL HISTORY: He has had 2 back surgeries. He apparently had required a chest tube in the past. He has had a rib surgery, cholecystectomy, appendectomy. He is currently on no medications, not even aspirin. ALLERGIES: HE HAS AN ALLERGY TO NEURONTIN. FAMILY HISTORY: Positive for heart disease. SOCIAL HISTORY: He is . He and his live in [place]. He is retired, worked for [employer]. Smokes half pack of cigarettes. No alcohol abuse. REVIEW OF SYSTEMS: He has had no history of stroke, asthma, liver disease, kidney disease. He has been treated for testicular cancer in the past. No chronic skin condition. PHYSICAL EXAMINATION: [place] [address] HISTORY AND PHYSICAL Name: MELISSA PATE Room: [address]#: [id number] Admission: 03/07/20 Attend Phys: Paul Trejo MD Discharge: 03/10/20 Date of : 78 Report #: [id number] GENERAL: Revealed a middle-aged male, appeared in mild distress secondary to chest pain. VITAL SIGNS: Blood pressure 110/60, pulse is 90, he is afebrile. HEENT: He is anicteric. Conjunctivae pink. Mucous membranes moist. NECK: Veins nondistended. No carotid bruits. CHEST: Clear to auscultation. CARDIOVASCULAR: Regular rate and rhythm. ABDOMEN: Soft. EXTREMITIES: Had no edema. Posterior tibial pulse 2+ bilaterally. SKIN: Cool and dry. NEUROLOGIC: Nonfocal. LABORATORY DATA: ECG shows sinus tachycardia, left ventricular hypertrophy. There is ST segment elevation in V2, V3 and V4 of up to 1.5 mm, upsloping ST segment depression in I and aVL. IMPRESSION AND RECOMMENDATIONS: 1. Possible edb-KY-lzupwkowb myocardial infarction. Recommend cardiac catheterization. 2. Coronary artery disease. Previous stent. The patient stopped taking his aspirin. 3. Hypertension. The patient no longer on medications. 4. Hyperlipidemia. The patient is no longer on a statin drug. 5. Chronic back pain. 6. Tobacco abuse. 7. History of testicular cancer. Critical care time spent on this patient would be from 2:50 to 3:40 for total of 50 minutes. <ELECTRONICALLY SIGNED> By: Tio Gallegos MD, [facility] 03/13/20 1723 1548 [id number] Gallegos MD, FAC /nt
== END 2020-03-10 15:35 | disposition home or self-care (01) | DRG 246 ==
LOC: M.ERS 15:10 → M.2W 15:43 → M.ICU 15:43 → M.TBA-CV 15:43 → M.ICU 17:40 → M.2W 03-09 17:22
PROVIDERS: Internal Medicine; Internal Medicine Cardiovascular Disease; Personal Emergency Response Attendant; Surgery Vascular Surgery; ADMIT Internal Medicine; ATTEND Internal Medicine
DX: I21.3 ST elevation (STEMI) myocardial infarction of unspecified site (principal); I63.9 Cerebral infarction, unspecified; K66.1 Hemoperitoneum; I25.110 Atherosclerotic heart disease of native coronary artery with unstable angina pectoris; Y92.89 Other specified places as the place of occurrence of the external cause; I77.1 Stricture of artery; E78.5 Hyperlipidemia, unspecified; M54.9 Dorsalgia, unspecified; G89.29 Other chronic pain; I10 Essential (primary) hypertension; J44.9 Chronic obstructive pulmonary disease, unspecified; F32.9 Major depressive disorder, single episode, unspecified; K21.9 Gastro-esophageal reflux disease without esophagitis; G43.909 Migraine, unspecified, not intractable, without status migrainosus; G47.33 Obstructive sleep apnea (adult) (pediatric); I48.0 Paroxysmal atrial fibrillation; Y83.8 Other surgical procedures as the cause of abnormal reaction of the patient, or of later complication, without mention of misadventure at the time of the procedure; Z82.49 Family history of ischemic heart disease and other diseases of the circulatory system; Z85.47 Personal history of malignant neoplasm of testis; Z90.49 Acquired absence of other specified parts of digestive tract; Z95.5 Presence of coronary angioplasty implant and graft; I25.2 Old myocardial infarction; Z79.899 Other long term (current) drug therapy; Z88.8 Allergy status to other drugs, medicaments and biological substances; Z88.1 Allergy status to other antibiotic agents; Z91.013 Allergy to seafood; Z87.891 Personal history of nicotine dependence; Z90.79 Acquired absence of other genital organ(s); Z03.818 Encounter for observation for suspected exposure to other biological agents ruled out

== ENCOUNTER 2020-03-12 08:57 | Observation (INO) | payer OTHER, MEDICAID ==
[~2020-03-12] VITALS: Ht 172.7 cm; Wt 79.4 kg
--- NOTE | ~2020-03-12 | CON ---
[address] [address] CONSULTATION Name: MELISSA PATE Josh Room: [address] Kristy Miller#: [id number] Admission: 03/12/20 Attend Phys: Bekah Bedoya Discharge: 03/13/20 Date of : 78 Report #: [id number] THIS REPORT FOR: //name// cc: Missael Velásquez Vincent R. DO THIS REPORT FOR: //name// CC: Bryon Velásquez DO DATE OF SERVICE: 03/13/2020 CARDIOLOGY CONSULTATION INDICATION: Hypotension. HISTORY OF PRESENT ILLNESS: The patient is a 39-year-old gentleman with a history of coronary artery disease. He has had percutaneous coronary intervention in the setting of a axz-EN-syzjkzeff myocardial infarction in 07/2018 with placement of stents to the circumflex marginal, LAD, and diagonal vessels. Several weeks later, he had an additional stent placed in the right posterolateral branch. This was performed at outside hospital. Subsequent to this, on 03/10/2020, the patient had a repeat intervention. He was found to have a high-grade stenosis in the mid right coronary artery for which he had a drug-eluting stent placed. Prior to this second series of interventions, the patient was having symptoms of dizziness and evaluation revealed subacute stroke which was felt to have occurred around the weekend of 02/23/2020. Etiology is not clear at this time. The patient returned to the hospital with complaints of weakness, syncope, and hypotension after being discharged 2 days ago from his most recent coronary intervention. By EMS, he was found to be profoundly hypotensive and bradycardic. Subsequent to his arrival in the hospital, he was given medication. In the Emergency Room, his blood pressure, although low, had improved. His symptoms had improved as well. He remains stable at this time and is no longer having symptoms of lightheadedness or dizziness. PAST MEDICAL HISTORY: 1. Coronary artery disease with intervention on multiple occasions as outlined above. 2. Hyperlipidemia. 3. Hypertension. 4. Recent stroke, cerebellar. 5. Tonsillectomy and adenoidectomy as a child. 6. Appendectomy. 7. Previous thoracic back surgery. 8. Thoracotomy [place] [address] CONSULTATION Name: KIPJasonMELISSA Room: [address] Kristy Miller#: [id number] Admission: 03/12/20 Attend Phys: Bekah Bedoya Discharge: 03/13/20 Date of : 78 Report #: [id number] 9. Orchiectomy as a child. ALLERGIES: ALPRAZOLAM, CEFTAZIDIME, IODINE, COMPAZINE, AND TIZANIDINE. REPORTED HOME MEDICATIONS: Aspirin 81 mg daily, atorvastatin 40 mg daily, carvedilol 6.25 mg b.i.d., Nitrostat 0.4 mg sublingual, Percocet 5/325 mg q.4 hours p.r.n., Protonix 20 mg daily, paroxetine 10 mg daily, Effient 10 mg daily, primidone 50 mg b.i.d., and Flomax 0.4 mg daily. SOCIAL HISTORY: The patient quit smoking remotely. He denies use of alcohol. PHYSICAL EXAMINATION: VITAL SIGNS: Stable. Blood pressure 126/78. Pulse is 65 and regular. GENERAL: This is a pleasant gentleman in no distress. Mood and affect appropriate. HEENT: Extraocular muscles intact. Mucous membranes are moist. NECK: Shows no jugular venous distention. There are no carotid bruits. CHEST: Examination of the chest reveals clear lung orozco without wheezes or rales. CARDIAC: Reveals a regular rhythm, normal S1 and S2. I do not appreciate a gallop or murmur. ABDOMEN: Reveals normal bowel sounds. Abdomen is soft and nontender. EXTREMITIES: Shows no edema. SKIN: Dry. A 12-lead EKG shows sinus bradycardia without significant ST segment or T-wave abnormality. Cardiac enzymes are unremarkable. IMPRESSION AND RECOMMENDATIONS: 1. Coronary artery disease, presently stable. Continue dual antiplatelet therapy. 2. Hypotension. Improved with adjustments to medications. 3. History of hypertension. Continue diminished doses of antihypertensives at home. 4. Hyperlipidemia. The patient reports noncompliance with atorvastatin. I have encouraged strongly that he continue with atorvastatin and have repeat fasting lipid profile in the next 3-6 months. 5. Stroke, etiology not clear. Consider outpatient monitoring on followup. Continue dual antiplatelet therapy. By: [id number] Mckeon MD, FACC /nt
[~2020-03-12 08:57] MED LIST changes: +ASPIR 8181 M1 PO; +COREG25 MG PO; +EFFIENT10 MG PO; +LOPRESSOR50 MG PO; +METOPROLOL TART25 MG PO; +NITROSTAT0.4 M1 SUBLING; +PROTONIX 20 MG20 M1 PO
[2020-03-12 09:00] VITALS: BP 92/47
[2020-03-12 09:18] LABS: URINE BILIRUBIN NEGATIVE (Negative); URINE BLOOD NEGATIVE (Negative); URINE CLARITY CLEAR; URINE COLOR YELLOW; URINE GLUCOSE-RANDOM NEGATIVE (Negative); URINE KETONES NEGATIVE (Negative); URINE LEUKOCYTES-REFLEX NEGATIVE (Negative); URINE NITRITE-REFLEX NEGATIVE (Negative); URINE PROTEIN 1+ (Negative); URINE SPECIFIC GRAVITY 1.015 (1.005-1.030)
[2020-03-12 09:33] LABS: ABSOLUTE EOSINOPHILS 0.6 thou/uL (0.0-0.7); ABSOLUTE LYMPHOCYTES 1.4 thou/uL (0.8-5.3); ABSOLUTE NEUTROPHILS 8.6 thou/uL (1.6-8.1); BASOPHILS 0.3 %; HEMATOCRIT 30.9 % (42.0-52.0); HEMOGLOBIN 10.5 gm/dL (14.0-18.0); LYMPHOCYTES 11.8 %; MCH 26.1 pg (26.0-34.0); MCHC 34.1 g/dL (28.0-37.0); MCV 76.7 fL (80.0-100.0); MPV 7.1 fl. (7.2-11.1); NUCLEATED RBCS 0 /100WBC; PLATELET COUNT* 302 thou/uL (150-400); POLYS 73.9 %; RBC 4.02 mil/uL (4.50-6.00); RDW-CV 15.4 % (10.5-14.5); WBC 11.6 thou/uL (4.0-11.0)
[2020-03-12 09:40] LABS: CASTS None Seen /LPF (None Seen); CRYSTALS None Seen /LPF (None Seen); SQUAMOUS 0-3 Few /LPF (0-3); URINE RBC 0-2 Rare /HPF (0-2); URINE WBC-REFLEX 0-5 Rare /HPF (0-5)
[2020-03-12 09:45] LABS: CREATININE 0.7 mg/dL (0.6-1.3); POTASSIUM 4.2 mmol/L (3.5-5.1)
[2020-03-12 09:48] LABS: APTT 26.3 Seconds (25.0-31.3); PROTIME 10.7 Seconds (9.20-11.50)
[2020-03-12 10:04] LABS: ALBUMIN 3.3 g/dL (3.4-5.0); TOTAL BILIRUBIN 0.5 mg/dL (<0.1-1.0); TOTAL PROTEIN 6.7 g/dL (6.4-8.2)
[2020-03-12 10:49] LABS: AMP/METHAMP Negative (Negative); BARBITURATES POSITIVE (Negative); BENZODIAZEPINES Negative (Negative); COCAINE Negative (Negative); METHADONE Negative (Negative); OPIATES POSITIVE (Negative); PCP Negative (Negative); THC Negative (Negative)
[2020-03-12 13:05] VITALS: BP 135/76
[2020-03-12 13:20] VITALS: BP 109/60
[2020-03-12] MEDS ORDERED: PAXIL 20 MG TAB20 M1 PO (15:02)
[2020-03-12 16:47] VITALS: BP 132/78
[2020-03-12 20:00] VITALS: BP 152/94
[2020-03-13] VITALS: BP 126/62
[2020-03-13 04:00] VITALS: BP 121/94
[2020-03-13 07:45] VITALS: BP 133/84
[2020-03-13 12:00] VITALS: BP 138/85
[2020-03-13] MEDS ORDERED: COREG6.25 MG PO (12:49)
[2020-03-13 12:51] VITALS: BP 138/85
--- NOTE | 2020-03-13 13:17 | EKG ---
[place] [address] ELECTROCARDIOGRAM REPORT Name: MELISSA PATE Room: [address] M.R.#: [id number] Admission: 03/12/20 Attend Phys: Bryon Solomon Discharge: Date of : 78 Date of Service: 03/12/20 0901 Report #: [id number] THIS REPORT FOR: //name// [facility] ED Test Date: 2020-03-12 Test Time: 09:01:40 Pat Name: MELISSA PATE Department: Room: [facility] Gender: M Sales Operations Director: : 1980 Requested By: Kirill Jose Order Number: [id number] MD: Bon Mckeon Measurements Intervals [place] Rate: 59 P: 3 WA: 151 QRS: -32 QRSD: 106 T: 74 QT: 436 QTc: 432 Interpretive Statements Sinus rhythm Probable left atrial enlargement Left ventricular hypertrophy, with repolarization abnormality Inferior infarct, old Anterior infarct, old Lateral leads are also involved Compared to ECG 03/08/2020 15:52:00 No significant changes Electronically Signed On 03-13-2020 13:17:01 CDT by Bon Mckeon [email or web address] <ELECTRONICALLY SIGNED> By: Bon Mckeon MD, FACC 03/13/20 1317 09 0901 Bon Mckeon MD, [facility] /EPI
[2020-03-13] MEDS ORDERED: MYSOLINE50 MG PO (13:38)
[2020-03-13] MEDS ORDERED: FLOMAX0.4 MG PO (13:39)
[2020-03-13] MEDS ORDERED: PERCOCET 5-3251 EACH PO (13:39)
== END 2020-03-13 14:30 | disposition home or self-care (01) ==
LOC: M.ERS 08:57 → M.TBA-ER 11:23 → M.2W 11:23 → M.TBA-ER 11:23 → M.2W 13:05
PROVIDERS: Family Medicine; ADMIT Internal Medicine; ATTEND Internal Medicine
DX: I21.3 ST elevation (STEMI) myocardial infarction of unspecified site (principal); R42 Dizziness and giddiness; I95.9 Hypotension, unspecified; Z20.828 Contact with and (suspected) exposure to other viral communicable diseases; R11.2 Nausea with vomiting, unspecified

== ENCOUNTER 2020-04-27 22:17 | Emergency (ER) | payer OTHER, MEDICAID ==
[~2020-04-27] VITALS: Ht 175.3 cm; Wt 73.5 kg
[~2020-04-27 22:17] MED LIST changes: +COREG6.25 MG PO; +FLOMAX0.4 MG PO; +MYSOLINE50 MG PO; +PAXIL 20 MG TAB20 M1 PO; +PERCOCET 5-3251 EACH PO
[2020-04-27] MEDS ORDERED: BACTRIM DS TAB1 EACH PO (22:48)
[2020-04-27] MEDS ORDERED: KEFLEX500 M1 PO (22:48)
[2020-04-27 22:54] VITALS: BP 159/95
== END 2020-04-27 22:54 | disposition home or self-care (01) ==
LOC: M.ERS 22:17
DX: L03.012 Cellulitis of left finger (principal); I25.10 Atherosclerotic heart disease of native coronary artery without angina pectoris; E78.5 Hyperlipidemia, unspecified; G43.909 Migraine, unspecified, not intractable, without status migrainosus; I10 Essential (primary) hypertension; Z87.891 Personal history of nicotine dependence; Z91.041 Radiographic dye allergy status; Z88.8 Allergy status to other drugs, medicaments and biological substances; Z91.018 Allergy to other foods; Z91.013 Allergy to seafood; Z90.49 Acquired absence of other specified parts of digestive tract; Z95.5 Presence of coronary angioplasty implant and graft

== ENCOUNTER 2020-04-29 10:30 | Inpatient (IN) | payer OTHER, MEDICAID ==
[~2020-04-29] VITALS: Ht 172.7 cm; Wt 90.7 kg
[~2020-04-29 10:30] MED LIST changes: +BACTRIM DS TAB1 EACH PO; +KEFLEX500 M1 PO
[2020-04-29 10:39] VITALS: BP 167/95
[2020-04-29 11:26] LABS: ABSOLUTE BASOPHILS 0.1 thou/uL (0.0-0.2); ABSOLUTE EOSINOPHILS 0.3 thou/uL (0.0-0.7); ABSOLUTE LYMPHOCYTES 1.3 thou/uL (0.8-5.3); ABSOLUTE MONOCYTES 0.5 thou/uL (0.0-1.2); ABSOLUTE NEUTROPHILS 7.3 thou/uL (1.6-8.1); BASOPHILS 0.6 %; HEMATOCRIT 39.1 % (42.0-52.0); HEMOGLOBIN 13.5 gm/dL (14.0-18.0); LYMPHOCYTES 14.1 %; MCH 26.5 pg (26.0-34.0); MCHC 34.6 g/dL (28.0-37.0); MCV 76.6 fL (80.0-100.0); MONOCYTES 5.4 %; NUCLEATED RBCS 0 /100WBC; PLATELET COUNT* 323 thou/uL (150-400); POLYS 76.9 %; RDW-CV 16.6 % (10.5-14.5); WBC 9.5 thou/uL (4.0-11.0)
[2020-04-29 11:43] LABS: CALCIUM 8.6 mg/dL (8.5-10.1); CREATININE 0.7 mg/dL (0.6-1.3); POTASSIUM 3.8 mmol/L (3.5-5.1)
[2020-04-29 11:50] LABS: ALBUMIN 3.7 g/dL (3.4-5.0); TOTAL BILIRUBIN 0.4 mg/dL (<0.1-1.0); TOTAL PROTEIN 7.6 g/dL (6.4-8.2)
[2020-04-29 14:32] VITALS: BP 162/82
[2020-04-29 14:43] VITALS: BP 141/77
[2020-04-29] MEDS ORDERED: REPATHA SU140 MG/1 M SUBQ (14:53)
--- NOTE | 2020-04-29 14:56 | NUR ---
PT ADMITTED WITH CELLULITIS LT HAND. PT DENIES ANY PAIN AT THIS TIME. PT ORIENTED TO ROOM AND EDUCATED ON USING CALL LIGHT WHEN NEEDING ASSISTANCE AND PRN MEDS. PT RESTING IN BED. FALL RISK PRECAUTIONS IN PLACE. WILL CONTINUE TO MONITOR.
--- NOTE | 2020-04-29 17:04 | NUR ---
PT REMAINED ALERT AND ORIENTED. PT RESTING IN BED WITH HAND ELEVATED ON PILLOW AND ICE. MEDS GIVEN ORDERED. FALL RISK PRECAUTIONS IN PLACE. HOURLY ROUNDING COMPLETED. PAIN MEDS GIVEN. WILL CONTINUE TO MONITOR.
[2020-04-29 20:43] VITALS: BP 168/68
[2020-04-30 04:51] LABS: HEMATOCRIT 37.3 % (42.0-52.0); HEMOGLOBIN 12.9 gm/dL (14.0-18.0); MCH 26.6 pg (26.0-34.0); MCHC 34.6 g/dL (28.0-37.0); MCV 76.9 fL (80.0-100.0); MPV 7.2 fl. (7.2-11.1); RBC 4.85 mil/uL (4.50-6.00); RDW-CV 16.4 % (10.5-14.5); WBC 6.8 thou/uL (4.0-11.0)
[2020-04-30 05:18] LABS: ALBUMIN 3.2 g/dL (3.4-5.0); CALCIUM 8.5 mg/dL (8.5-10.1); CREATININE 0.7 mg/dL (0.6-1.3); MAGNESIUM 1.8 mg/dL (1.8-2.4); POTASSIUM 3.6 mmol/L (3.5-5.1); TOTAL BILIRUBIN 0.2 mg/dL (<0.1-1.0)
--- NOTE | 2020-04-30 06:05 | NUR ---
PATIENT UP AD TANNER, ROOM AIR, ALERT AND ORIENTED. LEFT HAND MIDDLE FINGER HAS OPEN SORE, RED, PUS, SWOLLEN. OPEN TO AIR. OFFERED ICE PACKS FOR COMFORT. RECEIVED HYDROCODONE AT 2030 FOR PAIN IN HAND. RECEIVED ALL ABX SCHEDULED. NO NAUSEA/VOMITING REPORTED. VANC TROUGH 1230 TODAY. MRSA PENDING.
[2020-04-30 07:05] VITALS: BP 146/74
[2020-04-30 15:38] VITALS: BP 149/79
--- NOTE | 2020-04-30 15:43 | NUR ---
PT.ALERT AND ORIENTED. LIVES WITH HIS . HAS A CANE HE USES AT TIMES. PLAN IS TO DISCHARGE HOME AT DISCHARGE. NO NEEDS IDENTIFIED.
--- NOTE | 2020-04-30 17:37 | NUR ---
PT REMAINED ALERT AND ORIENTED. PT RESTING IN BED. PAIN MEDS GIVEN ORDERED. FALL RISK PRECAUTIONS IN PLACE. HOURLY ROUNDING COMPLETED. WILL CONTINUE TO MONITOR.
[2020-04-30 20:20] VITALS: BP 149/65
[2020-05-01 03:57] VITALS: BP 136/73
--- NOTE | 2020-05-01 04:05 | NUR ---
WOUND ON LEFT HAND MIDDLE FINGER IS WORSENING IN PAIN, SWELLING, REDNESS AND HAS YELLOW PUS PRESENT. SKIN AROUND THE CORE OF WOUND IS PEELING. PT RECEIVING SCHEDULED VANCOMYCIN/MEROPENEM. PT REPORTS LOSING FEELING IN HIS HAND WORSENING. ASIA REDDY RN SENT A MESSAGE TO DR FERREIRA THROUGH [facility] AT 0330 05/01/20 TO INFORM POULTRYMAN OF HIS PRESENT STATUS REPORTED BY PATIENT AND OBSERVED BY RN.
--- NOTE | 2020-05-01 04:38 | NUR ---
DR FERREIRA RETURNED CALL FOR CONSULT WITH ORTHO IN THE MORNING. PT NOTIFIED.
[2020-05-01 05:14] LABS: HEMATOCRIT 35.3 % (42.0-52.0); HEMOGLOBIN 12.1 gm/dL (14.0-18.0); MCH 26.3 pg (26.0-34.0); MCHC 34.2 g/dL (28.0-37.0); MCV 76.9 fL (80.0-100.0); MPV 7.6 fl. (7.2-11.1); RBC 4.59 mil/uL (4.50-6.00); RDW-CV 16.1 % (10.5-14.5)
[2020-05-01 05:28] LABS: CALCIUM 8.6 mg/dL (8.5-10.1); CREATININE 0.6 mg/dL (0.6-1.3); MAGNESIUM 1.7 mg/dL (1.8-2.4); POTASSIUM 3.8 mmol/L (3.5-5.1)
[2020-05-01 09:40] VITALS: BP 138/70
[2020-05-01 16:13] VITALS: BP 136/68
--- NOTE | 2020-05-01 17:48 | NUR ---
PATIENT SITTING UP EATING DINNER. PATIENT HAD I&D AT BEDSIDE THIS AM, DRESSING CLEAN, DRY AND INTACT. PATIENT HAS COMPLAINTS OF PAIN TO LEFT HAND, TREATED PARTIALLY WITH MEDICATION. PATIENT AND UPSET THIS AM WITH PHYSICIAN CARE AND ORDERS. PATIENT SPOKE WITH NURSING STRIP DEBURRER AND NURSE SITE HEAD. PATIENT REQUESTING DIFFERENT PHYSICIAN AND WANTING TO TALK TO DR ZURITA. MESSAGE LEFT FOR DR ZURITA BY NURSING STRIP DEBURRER. PATIENT IS CALM AND COOPERATIVE AT THIS TIME. PATIENT DENIES ANY NEEDS AT THIS TIME. CALL LIGHT WITHIN REACH.
[2020-05-01 20:02] VITALS: BP 142/74
[2020-05-02] VITALS: BP 139/79
[2020-05-02 03:54] LABS: HEMATOCRIT 34.4 % (42.0-52.0); HEMOGLOBIN 11.8 gm/dL (14.0-18.0); MCH 26.4 pg (26.0-34.0); MCHC 34.2 g/dL (28.0-37.0); MCV 77.1 fL (80.0-100.0); MPV 7.1 fl. (7.2-11.1); RBC 4.46 mil/uL (4.50-6.00); RDW-CV 16.4 % (10.5-14.5); WBC 14.8 thou/uL (4.0-11.0)
[2020-05-02 04:07] LABS: ALBUMIN 2.8 g/dL (3.4-5.0); CALCIUM 8.1 mg/dL (8.5-10.1); CREATININE 0.5 mg/dL (0.6-1.3); MAGNESIUM 1.8 mg/dL (1.8-2.4); POTASSIUM 3.5 mmol/L (3.5-5.1); TOTAL BILIRUBIN 0.1 mg/dL (<0.1-1.0)
--- NOTE | 2020-05-02 05:40 | NUR ---
PT A&OX4, ON ROOM AIR, UP AD TANNER, VSS, PAIN MEDS GIVEN SCHEDULED, PT SLEEPING WELL. HOURLY ROUNDINGS COMPLETE. WILL CONTINUE TO MONITOR.
[2020-05-02 07:00] VITALS: BP 132/67
[2020-05-02 09:58] VITALS: BP 132/67
--- NOTE | 2020-05-02 10:04 | NUR ---
WOUND NURSE: PATIENT SEEN TO ADDRESS WOUND ON MIDDLE FINGER ON LEFT HAND FOLLOWING I&D BY [facility]. REMOVED DRESSING AFTER SOAKING LOOSE WITH WOUND CLEANSER THEN IRRIGATED WITH ADDITIONAL WOUND CLEANSER AND PATTED DRY. WOUND MEASURED 1.7 X 0.6 X 0.5 CM. CONTAINED RED, NONGRANLATING TISSUE AND SMALL AMOUNT OF WHITISH FIBROUS TISSUE. THERE WAS A MODERATE AMOUNT OF DRIED SEROUSANGUINOOUS DRAIANGE ON YVON OLD DRESSING. WOUND WAS PHOTOGRAPHED, THEN REDRESSED FOLLOWS: PACKED LIGHTLY WITH AQUACEL AG, THEN COVERED WITH ADDITIONAL SQUARE OF AQUACEL AG, THEN COVERED WITH SQUARE OF AQUACEL AG AND WRAPPED WITH KERLEX ROLL GAUZE UNDER IRISH WRAP. THIS WAS TOLERATED WELL BY THE PATIENT. DR. MOON PRESENT IN THE ROOM. HE AGREED WITH PLAN TO FOLLOW UP WITH PATIENT IN [facility]. PATIENT AGREES TO THIS AND IS SCHEDULED FOR SATURDAY 05/05 AT 10 AM. PATIENT INSTRUCTED ON REPORTABLE S/S AND STATES HE UNDERSTANDS.
--- NOTE | 2020-05-02 11:17 | NUR ---
PT LEFT AMA WITH NO DISCHARGE ORDERS. GATHERED PT BELONGINGS. NOTIFIED PHYSICIAN.
== END 2020-05-02 11:20 | disposition left against medical advice (07) | DRG 580 ==
LOC: M.ERS 10:30 → M.TBA-ER 12:28 → M.ORTHSURG 12:28
PROVIDERS: Physician Assistant; ADMIT Internal Medicine; ATTEND Internal Medicine
PROC: 0JBK0ZZ Excision of Left Hand Subcutaneous Tissue and Fascia, Open Approach (ICD-10-PCS; principal; 2020-05-01)
DX: L03.012 Cellulitis of left finger (principal); L02.512 Cutaneous abscess of left hand; G43.909 Migraine, unspecified, not intractable, without status migrainosus; K59.00 Constipation, unspecified; I25.10 Atherosclerotic heart disease of native coronary artery without angina pectoris; I10 Essential (primary) hypertension; E78.5 Hyperlipidemia, unspecified; F17.210 Nicotine dependence, cigarettes, uncomplicated; R73.9 Hyperglycemia, unspecified; Z20.828 Contact with and (suspected) exposure to other viral communicable diseases; Z53.29 Procedure and treatment not carried out because of patient's decision for other reasons; Z90.49 Acquired absence of other specified parts of digestive tract; I25.2 Old myocardial infarction; Z95.5 Presence of coronary angioplasty implant and graft; Z82.49 Family history of ischemic heart disease and other diseases of the circulatory system; Z88.8 Allergy status to other drugs, medicaments and biological substances; Z91.041 Radiographic dye allergy status; Z91.013 Allergy to seafood

== ENCOUNTER → 2020-05-05 | Outpatient (CLI) | payer OTHER, MEDICAID ==
[~2020-05-05] MED LIST changes: +REPATHA SU140 MG/1 M SUBQ
== END ==
LOC: M.WC 04:03
PROVIDERS: ATTEND Surgery
DX: T63.301A Toxic effect of unspecified spider venom, accidental (unintentional), initial encounter (principal); L98.492 Non-pressure chronic ulcer of skin of other sites with fat layer exposed; G62.9 Polyneuropathy, unspecified; I25.2 Old myocardial infarction; I10 Essential (primary) hypertension; I25.119 Atherosclerotic heart disease of native coronary artery with unspecified angina pectoris; J45.909 Unspecified asthma, uncomplicated; F17.200 Nicotine dependence, unspecified, uncomplicated; F32.9 Major depressive disorder, single episode, unspecified; F41.9 Anxiety disorder, unspecified; Z86.73 Personal history of transient ischemic attack (TIA), and cerebral infarction without residual deficits; Z95.5 Presence of coronary angioplasty implant and graft; Z79.82 Long term (current) use of aspirin

== ENCOUNTER 2020-05-15 13:38 | Emergency (ER) | payer OTHER, MEDICAID ==
[~2020-05-15] VITALS: Ht 175.3 cm; Wt 73.5 kg
[2020-05-15 14:00] VITALS: BP 138/78
--- NOTE | 2020-05-15 17:01 | EKG ---
[place] [address] ELECTROCARDIOGRAM REPORT Name: KIPJasonMELISSA Moreno Room: [facility]#: [id number] Admission: 05/15/20 Attend Phys: Discharge: Date of : 78 Date of Service: 05/15/20 1343 Report #: [id number] THIS REPORT FOR: //name// [facility] ED Test Date: 2020-05-15 Test Time: 13:43:16 Pat Name: MELISSA PATE Department: Room: Gender: Material Assembler: [facility] 1980 Requested By: Jose Miguel Wilburn Order Number: [id number] MD: Bon Mckeon Measurements Intervals [place] Rate: 88 P: -14 AL: 158 QRS: -43 QRSD: 111 T: 29 QT: 398 QTc: 482 Interpretive Statements Sinus rhythm Possible left atrial enlargement Left ventricular hypertrophy Inferior infarct, old Probable anteroseptal infarct, recent Compared to ECG 03/12/2020 09:01:40 Early repolarization no longer present Myocardial infarct finding still present Electronically Signed On 05-15-2020 17:01:47 CDT by Bon Mckeon [email or web address] <ELECTRONICALLY SIGNED> By: Bon Mckeon MD, FAC 05/15/20 1701 1343 1343 Bon Mckeon MD, FAC /EPI
== END 2020-05-15 14:07 | disposition home or self-care (01) ==
LOC: M.ERS 13:38
DX: R07.89 Other chest pain (principal); G43.909 Migraine, unspecified, not intractable, without status migrainosus; I25.10 Atherosclerotic heart disease of native coronary artery without angina pectoris; E78.5 Hyperlipidemia, unspecified; I10 Essential (primary) hypertension; Z87.891 Personal history of nicotine dependence; Z91.041 Radiographic dye allergy status; Z88.8 Allergy status to other drugs, medicaments and biological substances; Z91.013 Allergy to seafood; Z91.018 Allergy to other foods; Z90.49 Acquired absence of other specified parts of digestive tract; Z95.5 Presence of coronary angioplasty implant and graft

== ENCOUNTER 2020-07-27 09:10 | Inpatient (IN) | payer OTHER, MEDICAID ==
[~2020-07-27] VITALS: Ht 172.7 cm; Wt 82.8 kg
[2020-07-27 09:20] VITALS: BP 151/88
[2020-07-27] MEDS ORDERED: BRILINTA60 MG PO (09:23)
[2020-07-27] MEDS ORDERED: PERCOCET 5-3251 EACH (09:23)
[2020-07-27] MEDS ORDERED: BACLOFEN5 MG PO (09:23)
[2020-07-27 09:39] LABS: HEMATOCRIT 39.6 % (42.0-52.0); HEMOGLOBIN 13.3 gm/dL (14.0-18.0); MCH 26.4 pg (26.0-34.0); MCHC 33.5 g/dL (28.0-37.0); MCV 78.9 fL (80.0-100.0); MPV 6.7 fl. (7.2-11.1); NUCLEATED RBCS 0 /100WBC; PLATELET COUNT* 339 thou/uL (150-400); RBC 5.01 mil/uL (4.50-6.00); RDW-CV 16.6 % (10.5-14.5); WBC 9.6 thou/uL (4.0-11.0)
[2020-07-27 09:48] LABS: CALCIUM 8.6 mg/dL (8.5-10.1); CREATININE 0.6 mg/dL (0.6-1.3); POTASSIUM 4.4 mmol/L (3.5-5.1)
[2020-07-27 09:51] LABS: APTT 25.1 Seconds (25.0-31.3); INR 0.9
[2020-07-27 09:58] LABS: ALBUMIN 3.4 g/dL (3.4-5.0); TOTAL BILIRUBIN 0.2 mg/dL (<0.1-1.0); TOTAL PROTEIN 7.3 g/dL (6.4-8.2)
[2020-07-27 11:09] LABS: ABSOLUTE EOSINOPHILS 1.6 thou/uL (0.0-0.7); ABSOLUTE LYMPHOCYTES 1.9 thou/uL (0.8-5.3); ABSOLUTE MONOCYTES 0.4 thou/uL (0.0-1.2); ABSOLUTE NEUTROPHILS 5.7 thou/uL (1.6-8.1); PLATELET ESTIMATE ADEQUATE
[2020-07-27 11:10] LABS: ANISOCYTOSIS Occasional
[2020-07-27 11:55] LABS: HEMATOCRIT 40.1 % (42.0-52.0); HEMOGLOBIN 13.4 gm/dL (14.0-18.0); MCH 26.5 pg (26.0-34.0); MCHC 33.3 g/dL (28.0-37.0); MCV 79.4 fL (80.0-100.0); MPV 6.8 fl. (7.2-11.1); RBC 5.05 mil/uL (4.50-6.00); RDW-CV 16.4 % (10.5-14.5); WBC 11.1 thou/uL (4.0-11.0)
[2020-07-27 14:04] LABS: AMP/METHAMP Negative (Negative); BARBITURATES Negative (Negative); BENZODIAZEPINES Negative (Negative); COCAINE Negative (Negative); METHADONE Negative (Negative); OPIATES POSITIVE (Negative); PCP Negative (Negative); THC Negative (Negative)
[2020-07-27 15:10] VITALS: BP 149/88
--- NOTE | 2020-07-27 15:16 | NUR ---
PT C/O PAIN TO LEFT SHOULDER MUSCLE. PT GIVEN WARM BLANKET TO LAY OVER SHOULDER WELL PRN ORDER OF ACETAMINOPHEN 650 MG. PT BECAME AGGITATED AND REFUSED ACETAMINOPHEN QUESTIONING WHY THE PHYSICIAN WOULD ORDER TYLENOL RATHER THAN HIS PERCOCET THAT HE TAKES DAILY. PT STATES, "TELL THE DOCTOR TO COME TO MY ROOM." DR. LIU WAS PAGED OVERHEAD TO CALL THE ER.
--- NOTE | 2020-07-27 17:37 | NUR ---
PT AND PT'S SIGNIFICANT OTHER ARE EXTREMELY UPSET AND AGITATED ABOUT NOT BEING IN AN INPATIENT ROOM. PT EXPLAINED THAT DR. ZURITA AND DR. LIU BOTH TOLD HIM THAT HE WOULD BE IN AN INPATIENT ROOM BY 1145 THIS MORNING. [employer] BPM ARCHITECT WAS CONTACTED AND IS NOW SPEAKING TO THE PATIENT AND SIGNIFICANT OTHER.
--- NOTE | 2020-07-27 17:37 | EKG ---
[place] [address] ELECTROCARDIOGRAM REPORT Name: KIPMELISSA Gomez Room: [place] [address] ADM IN [facility]#: [id number] Admission: 07/27/20 Attend Phys: Corbin Tate, Discharge: Date of : 78 Date of Service: 07/27/20 0941 Report #: [id number] THIS REPORT FOR: //name// [facility] ED Test Date: 2020-07-27 Test Time: 09:41:47 Pat Name: MELISSA PATE Department: Room: [facility] Gender: M Education Consultant: CCD : 1980 Requested By: Jose Miguel Wilburn Order Number: [id number] MD: Tio Gallegos Measurements Intervals [place] Rate: 83 P: 5 [place]: 148 QRS: -47 QRSD: 100 T: 60 QT: 384 QTc: 452 Interpretive Statements Sinus rhythm Left ventricular hypertrophy Anterior Q waves, possibly due to LVH Compared to ECG 05/15/2020 13:43:16 Myocardial infarct finding still present Electronically Signed On 07-27-2020 17:37:00 MEDICAL SOCIOLOGIST by Tio Gallegos [email or web address] <ELECTRONICALLY SIGNED> By: Tio Gallegos MD, [facility] 07/27/20 1737 Tio Gallegos MD, [facility] /EPI
--- NOTE | 2020-07-27 18:10 | NUR ---
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
[2020-07-27 21:00] VITALS: BP 138/68
[2020-07-27 21:19] VITALS: BP 124/70
[2020-07-28 00:40] VITALS: BP 125/66
[2020-07-28 04:00] VITALS: BP 144/76
[2020-07-28 06:53] LABS: ABSOLUTE BASOPHILS 0.1 thou/uL (0.0-0.2); ABSOLUTE EOSINOPHILS 1.4 thou/uL (0.0-0.7); ABSOLUTE LYMPHOCYTES 2.9 thou/uL (0.8-5.3); ABSOLUTE MONOCYTES 0.7 thou/uL (0.0-1.2); ABSOLUTE NEUTROPHILS 4.6 thou/uL (1.6-8.1); BASOPHILS 1.1 %; EOSINOPHILS 14.8 %; HEMATOCRIT 39.8 % (42.0-52.0); HEMOGLOBIN 13.4 gm/dL (14.0-18.0); MCH 26.4 pg (26.0-34.0); MCHC 33.6 g/dL (28.0-37.0); MCV 78.6 fL (80.0-100.0); MPV 6.8 fl. (7.2-11.1); NUCLEATED RBCS 0 /100WBC; PLATELET COUNT* 344 thou/uL (150-400); POLYS 47.1 %; RBC 5.06 mil/uL (4.50-6.00); RDW-CV 16.7 % (10.5-14.5); WBC 9.7 thou/uL (4.0-11.0)
[2020-07-28 07:14] LABS: ANION GAP 9 mmol/L (7-16); BUN 15 mg/dL (7-18); CALCIUM 9.4 mg/dL (8.5-10.1); CHLORIDE 103 mmol/L (98-107); CHOLESTEROL 247 mg/dL (<200); CO2 27 mmol/L (21-32); CREATININE 0.6 mg/dL (0.6-1.3); GLUCOSE 101 mg/dL (70-99); HDL CHOLESTEROL 30 mg/dL (>40); SERUM ASSESSMENT Clear; SODIUM 139 mmol/L (136-145); TC:HDL 8.2 Ratio (Not establshd); TRIGLYCERIDE 600 mg/dL (<150); VLDL 120 mg/dL (<40)
[2020-07-28 08:00] VITALS: BP 155/92
--- NOTE | 2020-07-28 09:02 | NUR ---
PT IS ABLE TO COMMUNICATE HIS NEEDS TO STAFF WITH MINOR DIFFICULTY; HE CAN BE VERY IMPAITENT AT TIMES. CURRENT PAIN MEDICATION REGIMEN HAS BEEN ADEQUATE FOR CONTROLLING HIS PAIN UP TO 0700 TODAY. HEPARIN GTT RUNNING AND ADJUSTED PER PROTOCOL. CARDIOLOGY CONSULTED.
[2020-07-28 12:00] VITALS: BP 138/68
[2020-07-28 14:25] VITALS: BP 155/92
--- NOTE | 2020-07-28 14:48 | NUR ---
CM COMPLETED THE INITIAL ASSESSMENT TO DISCUSS D/C PLANNING. PT LIVES AT HOME W/, DTR AND JELANI. PT IS DIABLED, NOT WORKING. PT HAS CANE. PT HAS HX W/VNA. PT DENIES HX W/SNF. PT , PRESENT AT BESIDE. PT STATED HE USES A BREATHING TX, NEBULIZER AT HOME. PT STATED HE IS ACTIVE AND CAN COMPLETE HIS OWN ADLS.THERE NO ANTICIPATED CM NEEDS AT THIS TIME.
--- NOTE | 2020-07-28 14:57 | EKG ---
[place] [address] ELECTROCARDIOGRAM REPORT Name: MELISSA PATE Room: [address] ADM IN .R.#: [id number] Admission: 07/27/20 Attend Phys: Corbin Tate, Discharge: Date of : 78 Date of Service: 07/27/20 0916 Report #: [id number] THIS REPORT FOR: //name// [facility] ED Test Date: 2020-07-27 Test Time: 09:16:23 Pat Name: MELISSA PATE Department: Room: [address] Gender: M Mammography Supervisor: KARIN : 1980 Requested By: Jose Miguel Wilburn Order Number: [id number] MD: Tio Gallegos Measurements Intervals [place] Rate: 74 P: 15 [place]: 144 QRS: -44 QRSD: 108 T: 76 QT: 410 QTc: 455 Interpretive Statements Sinus rhythm Probable left atrial enlargement Left ventricular hypertrophy Inferior infarct, old Anterior infarct, old Lateral leads are also involved Baseline wander in lead(s) V1,V2 Compared to ECG 05/15/2020 13:43:16 No significant changes Electronically Signed On 07-28-2020 14:56:52 RESOURCING ADVISOR by Tio Gallegos [email or web address] <ELECTRONICALLY SIGNED> By: Tio Gallegos MD, [facility] 07/28/20 1456 5 5 Tio Gallegos MD, [facility] /EPI
[2020-07-28] MEDS ORDERED: PAXIL 20 MG TAB20 M1 PO (15:43)
[2020-07-28] MEDS ORDERED: FLOMAX0.4 MG PO (15:44)
[2020-07-28] MEDS ORDERED: EFFIENT10 MG PO (15:45)
--- NOTE | 2020-07-28 16:19 | NUR ---
ASSUMED PT CARE AT 0730, PT HAD NO INITIAL C/O PAIN BUT C/O GENERALIZED PAIN THIS AFTERNOON TREATED W/ OXYCODONE W/ RELIEF. PT WORKED W/ CARDIOLOGY THIS MORNING, NO NEW ORDERS AND DC ORDERS RECEIVED. DC INSTRUCTIONS, CARE NOTES, SCRIPTS CALLEED INTO [facility], AND F/U APPTS GIVEN TO PT. IV AND SYNTHETIC DEPARTMENT SUPERVISOR REMOVED. PT COMMUNICATES UNDERSTANDING OF DC TEACHING. PT DC'D W/ NURSING STAFF W/ ALL PAPERWORK AND BELONGINGS AT APPROX 1620 TO 'S PERSONAL VEHICLE.
--- NOTE | 2020-07-29 07:50 | CON ---
[address] [address] CONSULTATION Name: MELISSA PATE Room: [address] IN M.R.#: [id number] Admission: 07/27/20 Attend Phys: Corbin Tate MD Discharge: 07/28/20 Date of : 78 Report #: [id number] THIS REPORT FOR: //name// cc: Missael Velásquez Vincent R. DO ~ CARDIOLOGY CONSULT INDICATION: Chest pain. HISTORY OF PRESENT ILLNESS: The patient is a pleasant gentleman well known to our service. He has a history of coronary artery disease with multiple interventions in the past. Most recently, he had stenting in February of this year. The patient states that in the process of depression, he quit his medications. Currently, he is not taking medications. He was seen in the Emergency Room with a complaint of chest discomfort, which is really located in his left back just above the scapular area near an incision from a previous rib resection. He describes this pain as somewhat different than his typical angina. The pain does radiate towards the front of the chest. He describes a dull discomfort that he has had overnight as well as a sharp stabbing pain that was more acute and is presently relieved. He does report some diaphoresis and shortness of breath with the discomfort. At the time of interview, he is pain free. PAST MEDICAL HISTORY: 1. Coronary artery disease with previous stenting to the circumflex, LAD, diagonal and right posterolateral branch as well as the mid right coronary artery. 2. Hyperlipidemia. 3. Hypertension. 4. History of stroke. 5. Tonsillectomy and adenoidectomy as a child. 6. Appendectomy. 7. Previous thoracic back surgery. 8. Thoracotomy for left lung collapse. 9. Orchiectomy as a child. ALLERGIES: ALPRAZOLAM, CEFTAZIDIME, IODINE, COMPAZINE, AND TIZANIDINE. HOME MEDICATIONS: Presently, he is on nothing. SOCIAL HISTORY: The patient quit smoking remotely. He does not drink alcohol. REVIEW OF SYSTEMS: A 14-point review [place] [address] CONSULTATION Name: MELISSA PATE Josh Room: [address]#: [id number] Admission: 07/27/20 Attend Phys: Corbin Tate MD Discharge: 07/28/20 Date of : 78 Report #: [id number] PHYSICAL EXAMINATION: VITAL SIGNS: Blood pressure 140/79, pulse 88 and regular. GENERAL: This is a pleasant gentleman in no distress. Mood and affect appropriate. HEENT: Extraocular muscles intact. Mucous membranes are moist. NECK: Shows no jugular venous distention. CHEST: Shows a regular clear lung orozco without wheezes or rales. CARDIOVASCULAR: Regular rhythm without gallop or murmur. ABDOMEN: Reveals normal bowel sounds. The abdomen is soft, nontender. EXTREMITIES: Show no edema. Skin is dry. Peripheral pulses 2+ and palpable. LABORATORY DATA: A 12-lead EKG shows sinus rhythm with some diffuse ST elevation, possibly due to LVH. There is some T-wave inversion in the lateral leads. Labs are reviewed. Initial troponin is less than 0.06. IMPRESSION AND RECOMMENDATIONS: 1. Chest pain, concerning for possible angina, although the patient has ruled out thus far. We will start heparin drip and watch on telemetry overnight. Further plans for possible intervention, pending results of his labs and his clinical course. 2. Coronary artery disease. Resume dual antiplatelet therapy. 3. Hypertension. Blood pressure reasonably well controlled presently. We will resume low-dose beta-john. 4. Dyslipidemia. Resume statin agent. <ELECTRONICALLY SIGNED> By: Bon Mckeon MD, FACC 07/29/20 0750 1036 1108Bon Mckeon MD, FACC /nt
== END 2020-07-28 16:20 | disposition home or self-care (01) | DRG 303 ==
LOC: M.ERS 09:10 → M.TBA-ER 11:13 → M.2W 11:13
PROVIDERS: Emergency Medicine Emergency Medical Services; Internal Medicine Cardiovascular Disease; ADMIT Internal Medicine; ATTEND Internal Medicine
DX: I25.110 Atherosclerotic heart disease of native coronary artery with unstable angina pectoris (principal); E78.5 Hyperlipidemia, unspecified; I10 Essential (primary) hypertension; G43.909 Migraine, unspecified, not intractable, without status migrainosus; F43.10 Post-traumatic stress disorder, unspecified; F15.10 Other stimulant abuse, uncomplicated; F32.9 Major depressive disorder, single episode, unspecified; F17.200 Nicotine dependence, unspecified, uncomplicated; F41.9 Anxiety disorder, unspecified; Z20.828 Contact with and (suspected) exposure to other viral communicable diseases; I25.2 Old myocardial infarction; Z90.49 Acquired absence of other specified parts of digestive tract; Z79.82 Long term (current) use of aspirin; Z98.1 Arthrodesis status; Z95.5 Presence of coronary angioplasty implant and graft; Z79.899 Other long term (current) drug therapy; Z88.1 Allergy status to other antibiotic agents; Z91.013 Allergy to seafood; Z88.8 Allergy status to other drugs, medicaments and biological substances; Z91.018 Allergy to other foods; Z91.048 Other nonmedicinal substance allergy status; Z91.14 Patient's other noncompliance with medication regimen

== ENCOUNTER 2020-10-08 15:54 | Emergency (ER) | payer OTHER, MEDICAID ==
[~2020-10-08] VITALS: Ht 172.7 cm; Wt 74.8 kg
[~2020-10-08 15:54] MED LIST changes: +BACLOFEN5 MG PO; +BRILINTA60 MG PO; +PERCOCET 5-3251 EACH
[2020-10-08] MEDS ORDERED: HYDROCODON-ACE1 EAC7 PO (16:48)
[2020-10-08 17:00] VITALS: BP 165/72
== END 2020-10-08 17:00 | disposition home or self-care (01) ==
LOC: M.ERS 15:54
DX: S93.491A Sprain of other ligament of right ankle, initial encounter (principal); X50.1XXA Overexertion from prolonged static or awkward postures, initial encounter; Y93.89 Activity, other specified; Y92.89 Other specified places as the place of occurrence of the external cause; Y99.8 Other external cause status; Z90.49 Acquired absence of other specified parts of digestive tract; I25.10 Atherosclerotic heart disease of native coronary artery without angina pectoris; Z95.5 Presence of coronary angioplasty implant and graft; I10 Essential (primary) hypertension; E78.5 Hyperlipidemia, unspecified; Z88.8 Allergy status to other drugs, medicaments and biological substances; Z91.041 Radiographic dye allergy status; Z91.013 Allergy to seafood; Z91.018 Allergy to other foods; Z87.891 Personal history of nicotine dependence

== ENCOUNTER 2020-11-06 03:02 | Observation (INO) | payer OTHER, MEDICAID ==
[~2020-11-06] VITALS: Ht 172.7 cm; Wt 78.9 kg
[~2020-11-06 03:02] MED LIST changes: +HYDROCODON-ACE1 EAC7 PO
[2020-11-06 03:06] VITALS: BP 193/103
[2020-11-06 03:21] LABS: ABSOLUTE BASOPHILS 0.1 thou/uL (0.0-0.2); ABSOLUTE EOSINOPHILS 0.5 thou/uL (0.0-0.7); ABSOLUTE LYMPHOCYTES 2.1 thou/uL (0.8-5.3); ABSOLUTE MONOCYTES 0.9 thou/uL (0.0-1.2); ABSOLUTE NEUTROPHILS 6.8 thou/uL (1.6-8.1); BASOPHILS 0.6 %; HEMATOCRIT 36.7 % (42.0-52.0); HEMOGLOBIN 12.5 gm/dL (14.0-18.0); LYMPHOCYTES 20.4 %; MCH 26.6 pg (26.0-34.0); MCHC 33.9 g/dL (28.0-37.0); MCV 78.5 fL (80.0-100.0); MONOCYTES 8.2 %; MPV 7.6 fl. (7.2-11.1); NUCLEATED RBCS 0 /100WBC; PLATELET COUNT* 222 thou/uL (150-400); POLYS 65.8 %; RBC 4.68 mil/uL (4.50-6.00); RDW-CV 16.1 % (10.5-14.5); WBC 10.4 thou/uL (4.0-11.0)
[2020-11-06 03:37] LABS: APTT 24.8 Seconds (25.0-31.3); INR 1.1; PROTIME 11.3 Seconds (9.20-11.50)
[2020-11-06 03:57] LABS: ANION GAP 12 mmol/L (7-16); BUN 19 mg/dL (7-18); CALCIUM 9.4 mg/dL (8.5-10.1); CHLORIDE 105 mmol/L (98-107); CO2 27 mmol/L (21-32); CREATININE 0.7 mg/dL (0.6-1.3); GLUCOSE 117 mg/dL (70-99); POTASSIUM 3.4 mmol/L (3.5-5.1); SODIUM 144 mmol/L (136-145)
[2020-11-06 04:07] LABS: ALBUMIN 3.9 g/dL (3.4-5.0); ALKALINE PHOSPHATASE 75 U/L (46-116); LIPASE 133 U/L (73-393); NT-PRO BRAIN NAT PEPTIDE 210 pg/mL (<300); SGOT 14 U/L (15-37); TOTAL BILIRUBIN 0.2 mg/dL (<0.1-1.0); TOTAL PROTEIN 7.6 g/dL (6.4-8.2)
[2020-11-06 04:08] LABS: SGPT < 0.1 U/L (30-65)
[2020-11-06 06:30] VITALS: BP 172/95
[2020-11-06 07:00] VITALS: BP 172/95
[2020-11-06 08:06] LABS: CHOLESTEROL 138 mg/dL (<200); HDL CHOLESTEROL 39 mg/dL (>40); LDL CHOLESTEROL 80 mg/dL (<100); TC:HDL 3.5 Ratio (Not establshd); TRIGLYCERIDE 99 mg/dL (<150); VLDL 20 mg/dL (<40)
[2020-11-06 08:07] LABS: SERUM ASSESSMENT Clear
[2020-11-06] MEDS ORDERED: RANEXA500 MG PO ×2 (08:41→09:33)
[2020-11-06] MEDS ORDERED: EFFIENT10 MG PO (09:32)
[2020-11-06] MEDS ORDERED: IMDUR 60 MG TAB60 M1 PO (09:33)
[2020-11-06] MEDS ORDERED: LIPITOR40 MG PO (09:33)
[2020-11-06] MEDS ORDERED: NITROSTAT0.4 M1 SUBLING (09:34)
[2020-11-06] MEDS ORDERED: COZAAR 50 MG TA50 M1 PO (09:34)
[2020-11-06] MEDS ORDERED: PROTONIX 20 MG20 M1 PO (09:34)
[2020-11-06] MEDS ORDERED: COREG6.25 MG PO (09:34)
--- NOTE | 2020-11-06 10:02 | EKG ---
[place] [address] ELECTROCARDIOGRAM REPORT Name: MELISSA PATE Room: [address]#: [id number] Admission: 11/06/20 Attend Phys: Corbin Tate, Discharge: Date of : 78 Date of Service: 11/06/20 0307 Report #: [id number] THIS REPORT FOR: //name// [facility] ED Test Date: 2020-11-06 Test Time: 03:07:50 Pat Name: MELISSA PATE Department: Room: [facility] Gender: M Reservations Sales Agent: MALIK : 1980 Requested By: Telma Slater Order Number: [id number] MD: Tio Gallegos Measurements Intervals [place] Rate: 79 P: 27 [place]: 177 QRS: -33 QRSD: 107 T: 73 QT: 412 QTc: 473 Interpretive Statements Sinus rhythm incomplete RBBB Probable left atrial enlargement Left ventricular hypertrophy Nonspecific T abnrm, anterolateral leads Compared to ECG 07/27/2020 09:41:47 no change Electronically Signed On 11-06-2020 10:02:38 CDT by Tio Gallegos [email or web address] <ELECTRONICALLY SIGNED> By: Tio Gallegos MD, FACC 11/06/20 1002 6 6 Tio Gallegos MD, FACC /EPI
--- NOTE | 2020-11-06 10:21 | EKG ---
[place] [address] ELECTROCARDIOGRAM REPORT Name: JOHNDARRELLMELISSA Gomez [address] [id number] Admission: 11/06/20 Attend Phys: Corbin Tate, Discharge: Date of : 78 Date of Service: 11/06/20 0612 Report #: [id number] THIS REPORT FOR: //name// [facility] ED Test Date: 2020-11-06 Test Time: 06:12:37 Pat Name: MELISSA PATE Department: Room: [facility] Gender: M Spa Therapist: TB : 1980 Requested By: Telma Slater Order Number: [id number] MD: Tio Gallegos Measurements Intervals [place] Rate: 69 P: 6 MA: 150 QRS: -25 QRSD: 114 T: 58 QT: 431 QTc: 462 Interpretive Statements Sinus rhythm Probable left atrial enlargement Left ventricular hypertrophy Inferior infarct, old ST elevation, consider early repolarization Electronically Signed On 11-06-2020 10:20:56 CDT by Tio Gallegos [email or web address] <ELECTRONICALLY SIGNED> By: Tio Gallegos MD, FAC 11/06/20 1020 1 1 Tio Gallegos MD, [facility] /EPI
[2020-11-06 10:24] VITALS: BP 172/95
--- NOTE | 2020-11-06 10:37 | NUR ---
PT DID NOT WANT MEDS THIS AM. STATES HE WILL TAKE THEM WHEN HE LEAVES.
== END 2020-11-06 10:40 | disposition home or self-care (01) ==
LOC: M.ERS 03:02 → M.TBA-ER 04:43 → M.2W 04:43
PROVIDERS: Internal Medicine; Personal Emergency Response Attendant; ADMIT Internal Medicine; ATTEND Internal Medicine
DX: I25.110 Atherosclerotic heart disease of native coronary artery with unstable angina pectoris (principal); E87.6 Hypokalemia; G43.909 Migraine, unspecified, not intractable, without status migrainosus; G89.29 Other chronic pain; M54.9 Dorsalgia, unspecified; I10 Essential (primary) hypertension; E78.5 Hyperlipidemia, unspecified; K59.00 Constipation, unspecified; Z20.822 Contact with and (suspected) exposure to COVID-19; Z87.891 Personal history of nicotine dependence; Z98.890 Other specified postprocedural states; Z95.5 Presence of coronary angioplasty implant and graft

== ENCOUNTER 2020-11-13 12:53 | Emergency (ER) | payer OTHER, MEDICAID ==
[~2020-11-13] VITALS: Ht 172.7 cm; Wt 69.0 kg
[~2020-11-13 12:53] MED LIST changes: +COZAAR 50 MG TA50 M1 PO; +IMDUR 60 MG TAB60 M1 PO; +RANEXA500 MG PO
[2020-11-13] MEDS ORDERED: BUTALB-APAP-CA1 EACH PO (13:52)
[2020-11-13 14:11] VITALS: BP 135/81
== END 2020-11-13 14:14 | disposition home or self-care (01) ==
LOC: M.ERS 12:53
DX: G43.909 Migraine, unspecified, not intractable, without status migrainosus (principal); I25.2 Old myocardial infarction; I25.10 Atherosclerotic heart disease of native coronary artery without angina pectoris; E78.5 Hyperlipidemia, unspecified; Z95.818 Presence of other cardiac implants and grafts; Z98.890 Other specified postprocedural states; Z79.899 Other long term (current) drug therapy; Z79.82 Long term (current) use of aspirin; Z91.048 Other nonmedicinal substance allergy status; Z88.8 Allergy status to other drugs, medicaments and biological substances; Z91.041 Radiographic dye allergy status; Z91.013 Allergy to seafood; Z91.018 Allergy to other foods; Z87.891 Personal history of nicotine dependence

== ENCOUNTER 2020-12-19 12:48 | Emergency (ER) | payer OTHER, MEDICAID ==
[~2020-12-19] VITALS: Ht 172.7 cm; Wt 72.1 kg
[~2020-12-19 12:48] MED LIST changes: +BUTALB-APAP-CA1 EACH PO
[2020-12-19] MEDS ORDERED: MELOXICAM15 MG PO (12:59)
[2020-12-19 13:45] LABS: CALCIUM 9.5 mg/dL (8.5-10.1); CREATININE 0.6 mg/dL (0.6-1.3); POTASSIUM 4.2 mmol/L (3.5-5.1)
[2020-12-19 13:48] LABS: PROTIME 10.9 Seconds (9.20-11.50)
[2020-12-19 13:58] LABS: ALBUMIN 3.7 g/dL (3.4-5.0); MAGNESIUM 2.1 mg/dL (1.8-2.4); TOTAL BILIRUBIN 0.4 mg/dL (<0.1-1.0); TOTAL PROTEIN 7.6 g/dL (6.4-8.2)
[2020-12-19 14:05] LABS: ABSOLUTE BASOPHILS 0.1 thou/uL (0.0-0.2); ABSOLUTE EOSINOPHILS 0.3 thou/uL (0.0-0.7); ABSOLUTE LYMPHOCYTES 1.9 thou/uL (0.8-5.3); ABSOLUTE MONOCYTES 0.6 thou/uL (0.0-1.2); ABSOLUTE NEUTROPHILS 9.3 thou/uL (1.6-8.1); BASOPHILS 0.5 %; EOSINOPHILS 2.8 %; HEMATOCRIT 38.8 % (42.0-52.0); LYMPHOCYTES 15.3 %; MCH 26.9 pg (26.0-34.0); MCHC 33.4 g/dL (28.0-37.0); MCV 80.6 fL (80.0-100.0); MONOCYTES 4.9 %; MPV 6.9 fl. (7.2-11.1); NUCLEATED RBCS 0 /100WBC; PLATELET COUNT* 310 thou/uL (150-400); POLYS 76.5 %; RBC 4.82 mil/uL (4.50-6.00); RDW-CV 17.6 % (10.5-14.5); WBC 12.1 thou/uL (4.0-11.0)
--- NOTE | 2020-12-19 14:54 | EKG ---
[place] [address] ELECTROCARDIOGRAM REPORT Name: JOHNDARRELLMELISSA Gomez Room: [facility]#: [id number] Admission: 12/19/20 Attend Phys: Discharge: Date of : 78 Date of Service: 12/19/20 1253 Report #: [id number] THIS REPORT FOR: //name// [facility] ED Test Date: 2020-12-19 Test Time: 12:53:35 Pat Name: MELISSA PATE Department: Room: Gender: Documentation Supervisor: : 1980 Requested By: Jose Miguel Wilburn Order Number: [id number] MD: Tio Gallegos Measurements Intervals [place] Rate: 49 P: -10 [place]: 146 QRS: -32 QRSD: 110 T: 17 QT: 472 QTc: 427 Interpretive Statements Sinus bradycardia Left ventricular hypertrophy Inferior infarct, old Anterior infarct, old Compared to ECG 11/06/2020 06:12:37 Sinus rhythm no longer present ST (T wave) deviation no longer present Myocardial infarct finding still present Electronically Signed On 12-19-2020 14:54:41 CDT by Tio Gallegos [email or web address] <ELECTRONICALLY SIGNED> By: Tio Gallegos MD, [facility] 12/19/20 1454 1253 1253 Tio Gallegos MD, [facility] /EPI
[2020-12-19 16:08] VITALS: BP 132/65
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
== END 2020-12-19 16:09 | disposition home or self-care (01) ==
LOC: M.ERS 12:48
PROVIDERS: Emergency Medicine Emergency Medical Services
DX: R07.89 Other chest pain (principal); G43.909 Migraine, unspecified, not intractable, without status migrainosus; E78.5 Hyperlipidemia, unspecified; I10 Essential (primary) hypertension; I25.10 Atherosclerotic heart disease of native coronary artery without angina pectoris; Z95.5 Presence of coronary angioplasty implant and graft; F17.210 Nicotine dependence, cigarettes, uncomplicated; Z91.041 Radiographic dye allergy status; Z88.8 Allergy status to other drugs, medicaments and biological substances; Z91.013 Allergy to seafood; Z91.018 Allergy to other foods; Z90.49 Acquired absence of other specified parts of digestive tract

== ENCOUNTER → 2020-12-31 | Outpatient (CLI) | payer OTHER, MEDICAID ==
[~2020-12-31] MED LIST changes: +MELOXICAM15 MG PO
--- NOTE | 2020-12-31 17:35 | CARDNUC ---
[place] [address] CARDIAC NUCLEAR IMAGING REPORT Name: MELISSA PATE Josh Room: [facility]#: [id number] Admission: 12/31/20 Attend Phys: Bon Mckeon, Discharge: Date of : 78 Date of Service: 12/31/20 1734 Report #: [id number] THIS REPORT FOR: cc: Missael Velásquez,Missael Pandya,Bon Pickens MD [facility] ~ APPROVED REPORT Imaging Protocol: Stress Tc-99m/Rest Tc-99m 1 day Study performed: 12/31/2020 12:00:00 Indication: Chest pain Patient Location: Out-Patient Stress Tech: Yesenia Cole Stress Nurse: Camille Del Rio RN Ht: 5 ft 8 in Wt: 175 lbs BSA: 1.93 m2 BMI: 26.60 Medical History Medical History: CAD non obstructive, COPD, Current Smoker, Diabetes, HTN, Hyperlipidemia, Stroke/TIA, CAD s/p [place], CAD s/p stent Medications: asa 81 atorvastatin, carvedilol, diltiazem, repatha losartan, ntg, effient Allergies: multiple Cardiac Risk Factors: Current Smoker, DM, HTN, Hyperlipidemia, Smoking Previous Cardiac Procedures: Myocardial infarction, PCI Exercise History: Indeterminate Resting Data Rest SPECT myocardial perfusion imaging was performed in supine position 30 minutes following the intravenous injection of 10.7 mCi of Tc-99m Sestamibi. Time of rest injection: 12:35 The images were gated to evaluate regional wall motion and calculate left ventricular ejection fraction. Administration Route: IV Administration Site: Right Hand Pharmacologic Stress Pharmacologic stress test was performed by injecting Regadenoson 0.4 mg IV push over 10-15 seconds immediately [place] [address] CARDIAC NUCLEAR IMAGING REPORT Name: MELISSA PATE Room: [facility]#: [id number] Admission: 12/31/20 Attend Phys: Bon Mckeon, Discharge: Date of : 78 Date of Service: 12/31/20 1734 Report #: [id number] injection of 33.0 mCi of Tc-99m Sestamibi. Time of stress injection: 14:40 Administration Route: IV Administration Site: Right Hand Heart Rate at time of stress injection: 110 bpm. Gated Stress SPECT was performed 40 minutes after stress injection. The images were gated to evaluate regional wall motion and calculate left ventricular ejection fraction. Prone imaging was performed. Stress Test Details Stress Test: Pharmacologic stress testing performed using 0.4 mg of regadenoson per 5 mL given IV over 10 seconds. Reason for pharmacologic stress test: difficulty walking. HR Max Heart Rate (APMHR): 179 bpm Resting HR: 86 bpm Target HR (85% APMHR): 152 bpm Max HR Achieved: 110 bpm % of APMHR: 61 Recovery HR: 90 bpm BP Resting BP: 157/87 mmHg Max BP: 163/87 mmHg Recovery BP: 177/100 mmHg ECG Resting ECG: Sinus Rhythm, LVH with repolarization changes Stress ECG: Sinus tachycardia, LVH with repolarization changes ST Change: None Arrhythmia: None Recovery ECG: Sinus Rhythm, LVH with repolarization changes Recovery ST Change: None Recovery Arrhythmia: None Clinical Reason for Termination: Completed protocol The patient exhibited limited exercise tolerance. There were no specific symptoms to suggest angina. Stress ECG Conclusion The baseline twelve-lead EKG shows sinus rhythm with left ventricular hypertrophy and repolarization abnormality. EKGs [place] [address] CARDIAC NUCLEAR IMAGING REPORT Name: HERLINDAMELISSA Josh Room: [facility]#: [id number] Admission: 12/31/20 Attend Phys: Bon Mckeon, Discharge: Date of : 78 Date of Service: 12/31/20 1734 Report #: [id number] post exercise show sinus rhythm and sinus tachycardia with no significant ST segment changes when compared to baseline. There were no stress-induced arrhythmias. Study Quality Study: Good Artifact: No artifact Study Data At rest, the left ventricular ejection fraction was 55%.. Post stress, the left ventricular ejection was 53%.. TID = 1.16. Perfusion Perfusion images show a small in size moderate intensity fixed defect of the basal inferior wall. No other significant fixed or reversible defects are identified. Wall Motion Basal inferior wall hypokinesis. Left ventricular systolic function mildly decreased. Nuclear Conclusion ECG Findings: non-diagnostic Clinical Findings: negative for ischemia Nuclear Findings: negative for ischemia Exercise Capacity: Limited Left Ventricular Function: abnormal Perfusion images suggest prior basilar inferior wall infarct. Global LV systolic function is mildly decreased. This is not a high risk study. <Conclusion> The baseline twelve-lead EKG shows sinus rhythm with left ventricular hypertrophy and repolarization abnormality. EKGs obtained during and post exercise show sinus rhythm and sinus tachycardia with no significant ST segment changes when compared to baseline. There were no stress-induced arrhythmias. <ELECTRONICALLY SIGNED> By: Bon Mckeon MD, FACC 12/31/20 1734 1734 1734 Bon Mckeon MD, FACC /INF
== END ==
LOC: M.NUC 12-09 13:55
PROVIDERS: ATTEND Internal Medicine Cardiovascular Disease
DX: I25.10 Atherosclerotic heart disease of native coronary artery without angina pectoris (principal); R07.9 Chest pain, unspecified

== ENCOUNTER 2021-01-28 20:42 | Emergency (ER) | payer OTHER, MEDICAID ==
[~2021-01-28] VITALS: Ht 172.7 cm; Wt 74.8 kg
[2021-01-28] MEDS ORDERED: COZAAR 25 MG TA25 M2 PO (20:54)
[2021-01-28 21:27] LABS: INFLUENZA A ANTIGEN Negative (Negative); INFLUENZA B ANTIGEN Negative (Negative)
[2021-01-28] MEDS ORDERED: ZPAK PO (21:44)
[2021-01-28] MEDS ORDERED: PREDNISONE 20 M20 MG PO (21:44)
[2021-01-28] MEDS ORDERED: PROAIR HFA8.5 GM INH (21:44)
[2021-01-28 22:10] VITALS: BP 174/89
== END 2021-01-28 22:12 | disposition home or self-care (01) ==
LOC: M.ERS 20:42
PROVIDERS: Nurse Practitioner Psychiatric/Mental Health
DX: J20.9 Acute bronchitis, unspecified (principal); Z20.822 Contact with and (suspected) exposure to COVID-19; F17.210 Nicotine dependence, cigarettes, uncomplicated; I25.10 Atherosclerotic heart disease of native coronary artery without angina pectoris; I10 Essential (primary) hypertension; E78.5 Hyperlipidemia, unspecified; Z88.8 Allergy status to other drugs, medicaments and biological substances; Z91.013 Allergy to seafood; Z79.899 Other long term (current) drug therapy; Z79.82 Long term (current) use of aspirin

== ENCOUNTER 2021-03-08 18:01 | Emergency (ER) | payer OTHER, MEDICAID ==
[~2021-03-08] VITALS: Ht 172.7 cm; Wt 78.5 kg
[~2021-03-08 18:01] MED LIST changes: +COZAAR 25 MG TA25 M2 PO; +PREDNISONE 20 M20 MG PO; +PROAIR HFA8.5 GM INH; +ZPAK PO
[2021-03-08 18:44] VITALS: BP 180/108
== END 2021-03-08 18:46 | disposition home or self-care (01) ==
LOC: M.ERS 18:01
DX: Z53.21 Procedure and treatment not carried out due to patient leaving prior to being seen by health care provider (principal)

== ENCOUNTER 2021-06-03 13:05 | Emergency (ER) | payer OTHER, MEDICAID ==
[~2021-06-03] VITALS: Ht 172.7 cm; Wt 77.1 kg
[2021-06-03 15:21] VITALS: BP 131/75
== END 2021-06-03 15:21 | disposition home or self-care (01) ==
LOC: M.ERS 13:05
DX: S00.03XA Contusion of scalp, initial encounter (principal); I10 Essential (primary) hypertension; I25.2 Old myocardial infarction; I25.10 Atherosclerotic heart disease of native coronary artery without angina pectoris; E78.5 Hyperlipidemia, unspecified; F17.210 Nicotine dependence, cigarettes, uncomplicated; G43.909 Migraine, unspecified, not intractable, without status migrainosus; Z86.73 Personal history of transient ischemic attack (TIA), and cerebral infarction without residual deficits; Z90.49 Acquired absence of other specified parts of digestive tract; Z98.890 Other specified postprocedural states; Z79.899 Other long term (current) drug therapy; Z79.82 Long term (current) use of aspirin; Z88.8 Allergy status to other drugs, medicaments and biological substances; Z91.041 Radiographic dye allergy status; V49.3XXA Car occupant (driver) (passenger) injured in unspecified nontraffic accident, initial encounter; Y93.I9 Activity, other involving external motion; Y92.488 Other paved roadways as the place of occurrence of the external cause; Y99.8 Other external cause status

== ENCOUNTER 2021-09-19 06:48 | Emergency (ER) | payer OTHER, MEDICAID ==
[~2021-09-19] VITALS: Ht 172.7 cm; Wt 76.2 kg
[2021-09-19 08:38] VITALS: BP 176/119
== END 2021-09-19 08:39 | disposition left against medical advice (07) ==
LOC: M.ERS 06:48
DX: M79.641 Pain in right hand (principal); Q76.7 Congenital malformation of sternum; G43.909 Migraine, unspecified, not intractable, without status migrainosus; I25.2 Old myocardial infarction; I25.10 Atherosclerotic heart disease of native coronary artery without angina pectoris; I10 Essential (primary) hypertension; E78.5 Hyperlipidemia, unspecified; F17.210 Nicotine dependence, cigarettes, uncomplicated; Z98.890 Other specified postprocedural states; Z85.47 Personal history of malignant neoplasm of testis; Z79.51 Long term (current) use of inhaled steroids; Z79.82 Long term (current) use of aspirin; Z79.1 Long term (current) use of non-steroidal anti-inflammatories (NSAID); Z79.899 Other long term (current) drug therapy; Z88.6 Allergy status to analgesic agent; Z88.5 Allergy status to narcotic agent; Z91.013 Allergy to seafood; Z88.8 Allergy status to other drugs, medicaments and biological substances; Z91.018 Allergy to other foods